=== PATIENT | female | born 1945 | race Caucasian/White ===

== ENCOUNTER → 2022-03-16 | Outpatient (CLI) | payer MEDICARE, SELFPAY ==
--- NOTE | 2022-03-16 09:07 | RAD_ITS ---
EXAM: XR ABDOMEN, 2 VIEWS AND XR CHEST, 1 VIEW CLINICAL INDICATION: UMBILICAL HERNIA TECHNIQUE: Frontal view of the chest, frontal view of the abdomen/pelvis and upright or decubitus view of the abdomen. This report was created using [employer] report [employer] technology. COMPARISON: None. FINDINGS: CHEST: LUNGS AND PLEURAL SPACES: Unremarkable. No consolidation or edema. No pneumothorax. No effusion. HEART: Unremarkable. Cardiac silhouette not enlarged. MEDIASTINUM: Central airways and mediastinal contour are unremarkable. ABDOMEN: INTRAPERITONEAL SPACE: There is a 6.3 x 3.0 cm calcific density in the right lower abdomen. No free air. GASTROINTESTINAL TRACT: Unremarkable. Non-obstructive. No bowel or stomach distention. ORGANS: Unremarkable as visualized. No organomegaly. No abnormal calcifications. TUBES, LINES AND DEVICES: None. BONES/JOINTS: There is mild curvature of the lumbar spine. SOFT TISSUES: No acute findings. RAD/Acute Abdomen Inc Chest IMPRESSION: [place] density in the right midabdomen which may represent abdominal calcification. If indicated further evaluation with CT scan may be beneficial. Electronically Signed: Ochoa Lopes MD at 17:18 EDT ,
[2022-03-16 10:18] LABS: Absolute Lymphocyte Count 1.06 X10^3/uL (0.83-4.51); Absolute Neutrophil Count 5.7 X10^3/uL (2.0-7.7); Basophil# 0.03 X10^3/uL; Basophil% 0.4 % (0-1); Eosinophil# 0.12 X10^3/uL; Eosinophils% 1.6 % (0-5); Hematocrit 40.8 % (37-47); Hemoglobin 13.3 g/dL (12.0-15.0); Lymphocyte # 1.06 X10^3/ul (0.83-4.51); Lymphocyte % 13.9 % (19-41); Mean Corp Hgb Conc 32.6 g/dL (32-36); Mean Corpuscular Hgb 29.5 pg (27.0-32.0); Mean Corpuscular Volume 90.5 fL (81-99); Mean Platelet Vol. 10.6 fl (6.2-12.0); Monocyte% 9.2 % (0-10); NRBC Flagged by Analyzer 0 % (0-5); Neutrophil # 5.69 X10^3/uL (2.7-7.7); Neutrophil % 74.2 % (47-70); Platelet Count 291 K/mm3 (150-450); RBC Distribution Width CV 13.1 % (11.6-14.6); RBC Distribution Width SD 43.2 fl (35.1-43.9); Red Blood Count 4.51 M/mm3 (4.2-5.4); White Blood Count 7.7 K/mm3 (4.4-11.0)
[2022-03-16 10:37] LABS: Color, Urine Yellow (Yellow); Glucose, Dipstick Normal (Normal); Ketone-Dipstick Negative (Negative); Leukocyte Esterase-Dipstick 500 /ul (Negative); Nitrite-Dipstick Negative (Negative); Occult Blood-Urine 10 /ul (Negative); Protein-Dipstick 15 mg/dl (Negative); Specific Gravity, Urine 1.005 (1.002-1.030); Urine Bilirubin Dipstick Negative (Negative); Urine Clarity Clear (Clear); Urine Urobilinogen Normal (Normal)
[2022-03-16 10:56] LABS: ALB/GLOB Ratio 0.7 RATIO (0.9-2.4); AST(SGOT) 13 U/L (15-37); Alanine Aminotransfer ALT/SGPT 19 U/L (13-56); Albumin, Serum 3.1 g/dL (3.2-5.0); Alkaline Phosphatase 71 U/L (45-117); Anion Gap 7 (5-15); BUN 9 mg/dL (7-18); BUN/Creat Ratio 11.5 RATIO (10-20); Calcium,Total 9.6 mg/dL (8.5-10.1); Chloride 98 mmol/L (98-107); Creatinine, Serum 0.78 mg/dL (0.55-1.02); EST Glomerular Filtration Rate 76 mL/min (>60); Est Glom Filt Rate - Afr Amer 92 mL/min (>60); Globulin 4.4 g/dL (2.2-4.2); Glucose 114 mg/dL (74-106); Potassium 3.6 mmol/L (3.5-5.1); Protein, Total 7.5 g/dL (6.4-8.2); Sodium Level 136 mmol/L (136-145)
== END | disposition home or self-care (01) ==
PROVIDERS: PCP Family Medicine; Referring Provider Family Medicine; Visit Provider Family Medicine
DX: K42.9 Umbilical hernia without obstruction or gangrene (principal); R10.9 Unspecified abdominal pain
CPT/HCPCS: 36415; 74022; 80053; 81002; 85025; 87086; 87088

== ENCOUNTER → 2022-04-14 | Outpatient (CLI) | payer MEDICARE, SELFPAY ==
--- NOTE | 2022-04-14 08:07 | CT_ITS ---
STUDY: CT ABDOMEN WITHOUT CONTRAST REASON FOR EXAM: Female, 76 years old. ABD PAIN RADIATION DOSAGE (If Supplied By Facility): CTDIvol = ( 24.07 ) mGy, DLP = ( 834.22 ) mGycm TECHNIQUE: Transaxial images were obtained without intravenous contrast, and with oral contrast. Sagittal and coronal images were reconstructed. Individualized dose optimization techniques were used for this CT. COMPARISON: None. FINDINGS: Minimal linear atelectasis at the lung bases. Coronary artery calcification. Mild hepatomegaly. There is a densely calcified gallstone in the gallbladder lumen measuring 3.4 cm x 2.5 cm. Normal spleen. Normal pancreas. Normal bilateral adrenal glands. There is a 1.5 cm cyst in the upper lateral pole of the right kidney. Normal left kidney. There is a small hiatal hernia. Normal small intestine. There are multiple colonic diverticula consistent with diverticulosis. There is non-visualization of the appendix. There is diffuse atherosclerotic calcification of the abdominal aorta and its major visceral branches, without a demonstrated aneurysm. Normal inferior vena cava. Normal retroperitoneum. Normal abdominal wall. There are diffuse degenerative changes of the visualized lumbar spine. Levoscoliosis. CT/Abdomen without IV Contrast IMPRESSION: Density calcified gallstone. Small right renal cyst. Electronically Signed: Jovany Tierney MD at 10:52 EDT ,
== END | disposition home or self-care (01) ==
PROVIDERS: PCP Family Medicine; Referring Provider Family Medicine; Visit Provider Family Medicine
DX: R10.9 Unspecified abdominal pain (principal)
CPT/HCPCS: 74150

== ENCOUNTER → 2022-05-02 | Outpatient (CLI) | payer MEDICARE, SELFPAY ==
[2022-05-02 09:58] LABS: Hematocrit 43.2 % (37-47); Hemoglobin 14.4 g/dL (12.0-15.0); Mean Corp Hgb Conc 33.3 g/dL (32-36); Mean Corpuscular Hgb 30.2 pg (27.0-32.0); Mean Corpuscular Volume 90.6 fL (81-99); Mean Platelet Vol. 10.5 fl (6.2-12.0); Platelet Count 226 K/mm3 (150-450); RBC Distribution Width CV 13.5 % (11.6-14.6); RBC Distribution Width SD 45.6 fl (35.1-43.9); Red Blood Count 4.77 M/mm3 (4.2-5.4); White Blood Count 7.7 K/mm3 (4.4-11.0)
[2022-05-02 10:10] LABS: ALB/GLOB Ratio 0.8 RATIO (0.9-2.4); AST(SGOT) 14 U/L (15-37); Alanine Aminotransfer ALT/SGPT 18 U/L (13-56); Albumin, Serum 3.3 g/dL (3.2-5.0); Alkaline Phosphatase 75 U/L (45-117); Anion Gap 5 (5-15); BUN 11 mg/dL (7-18); BUN/Creat Ratio 15.5 RATIO (10-20); Calcium,Total 9.5 mg/dL (8.5-10.1); Chloride 102 mmol/L (98-107); Creatinine, Serum 0.71 mg/dL (0.55-1.02); EST Glomerular Filtration Rate 85 mL/min (>60); Est Glom Filt Rate - Afr Amer 103 mL/min (>60); Glucose 105 mg/dL (74-106); Potassium 3.9 mmol/L (3.5-5.1); Protein, Total 7.3 g/dL (6.4-8.2); Sodium Level 138 mmol/L (136-145)
== END | disposition home or self-care (01) ==
LOC: MTLAB 08:24
PROVIDERS: PCP Family Medicine; Referring Provider Internal Medicine; Visit Provider Internal Medicine
DX: Z01.812 Encounter for preprocedural laboratory examination (principal); D64.9 Anemia, unspecified; N18.9 Chronic kidney disease, unspecified
CPT/HCPCS: 36415; 80053; 85027

== ENCOUNTER 2022-06-21 13:21 | Emergency (ER) | payer MEDICARE, SELFPAY ==
[2022-06-21 13:22] VITALS: BP 157/67; PULSE 64; RESP 16; TEMP 36.6; O2SAT 98; BMI 35.6
--- NOTE | 2022-06-21 14:07 | EDS_ITS ---
HPI History of Present Illness Chief Complaint: Dizziness Narrative Narrative: 76-year-old female presenting with severe lightheadedness. She describes it as an off-balance feeling. She states has had this for years but today it was very severe. She was only able to get up and move a couple of feet before she had to sit back down. She does not describe spinning. She does states she has a history of vertigo, but has not tried any Antivert because she says it has not worked. She denies headache, blurred vision, slurred speech, paresthesias, nausea, vomiting. She is not having any chest pain or shortness of breath. She does not have any abdominal pain. She has been eating and drinking normally. She is making normal urine and stool. She denies any dysuria, hematuria, urinary frequency. She denies black or bloody stools. She is been afebrile. [facility] Medical History (Updated 06/21/22 @ 14:48 by Bisi Nettles) High cholesterol Home Medications diazepam 2 mg tablet (Valium) 2 mg PO BID PRN dizziness or vertigo #10 tabs 06/21/22 [Rx Last Taken Unknown] meclizine 25 mg tablet 25 mg PO TID PRN dizziness #30 tabs 06/21/22 [Rx Last Rubio en Unknown] potassium chloride 20 mEq tablet,extended release 20 meq PO DAILY #30 tabs 06/21/22 [Rx Last Taken Unknown] promethazine 25 mg tablet 25 mg PO TID PRN dizziness or vertigo #30 tabs 3 [Rx Last Taken Unknown] Allergy/AdvReac Type Severity Reaction Status Date / Time No Known Allergies Allergy Verified 06/21/22 13:23 Social History Smoking Status: Unknown if ever smoked ROS ROS ED ROS Narrative Lightheadedness Constitutional Constitutional ED: Denies chills or fever(s) Eyes Eyes: Denies change in vision or diplopia ENT ENT ED: Denies rhinorrhea or sore throat Cardiovascular Cardiovascular: Denies chest pain or palpitations Respiratory/Chest Respiratory/Chest: Denies cough, dyspnea or dyspnea on exertion Gastrointestinal Gastrointestinal: Denies abdominal pain Genitourinary Genitourinary ED: Denies dysuria or hematuria Musculoskeletal Musculoskeletal: Denies arthralgias or back pain Integumentary Denies abscess Neurologic Neurologic: Denies headache(s) or paresthesias Psychiatric Psychiatric: Denies anxiety or depression EXAM Physical Exam Const Vital Signs: 06/21/22 13:22 06/21/22 14:27 06/21/22 14:47 Temperature 98 F Temperature Source Temporal Pulse Rate 64 Pulse Rate [Lying] Pulse Rate [Sitting (for 1 minute prior to obtaining)] Pulse Rate [Standing (for 1 minute prior to obtaining)] Respiratory Rate 16 Respiratory Effort Normal Non-Labored Blood Pressure 157/67 H Blood Pressure [Lying] Blood Pressure [Sitting (for 1 minute prior to obtaining)] Blood Pressure [Standing (for 1 minute prior to obtaining)] Blood Pressure Mean 97 Blood Pressure Mean [Lying] Blood Pressure Mean [Sitting (for 1 minute prior to obtaining)] Blood Pressure Mean [Standing (for 1 minute prior to obtaining)] Pulse Ox 98 95 Oxygen Delivery Method Room Air Room Air 06/21/22 14:36 06/21/22 16:16 Temperature Temperature Source Pulse Rate Pulse Rate [Lying] 63 Pulse Rate [Sitting (for 1 minute prior to obtaining)] 66 Pulse Rate [Standing (for 1 minute prior to obtaining)] 70 Respiratory Rate Respiratory Effort Blood Pressure 150/69 H Blood Pressure [Lying] 149/62 H Blood Pressure [Sitting (for 1 minute prior to obtaining)] 147/83 H Blood Pressure [Standing (for 1 minute prior to obtaining)] 133/67 H Blood Pressure Mean 96 Blood Pressure Mean [Lying] 91 Blood Pressure Mean [Sitting (for 1 minute prior to obtaining)] 104 Blood Pressure Mean [Standing (for 1 minute prior to obtaining)] 89 Pulse Ox Oxygen Delivery Method Positive well nourished General Appearance ED: NAD HEENT Reports moist mucous membranes and dry mucous membranes HEENT Narrative: Reproducible lightheadedness symptoms with Tomi-Hallpike however I am not able to view her eyes for nystagmus she is to close her eyes and hold hold her head. Mouth ED: Yes dry mucous membranes Mouth: dry mucous membranes Chest Wall inspection of chest normal Resp normal respiratory effort Auscultation: Negative for rales, rhonchi or wheezes Cardio regular rate and regular rhythm Psych mental status grossly normal Skin no rashes or lesions noted, no wounds and skin turgor normal MDM MDM MDM Narrative Medical decision making narrative: Patient presenting with chief complaint of lightheadedness. She states that she feels off balance. She denies vertiginous symptoms. Her exam is otherwise normal with exception of reproducible dizziness/lightheadedness with [place]- Hallpike. I will treat her with Phenergan and meclizine. We will obtain a CBC to assess hemoglobin level and differential., Chemistry to assess electrolytes and renal function. Urinalysis will be obtained to assess for UTI. EKG will be obtained to assess for dysrhythmia. I will obtain a chest x-ray and a troponin to ensure no cardiopulmonary etiology. Orthostatics will also be obtained to assess for orthostatic hypotension. Orthostatic vital signs are normal. EKG on my interpretation is sinus bradycardia with a ventricular to 59 bpm without sign of ischemic change or dysrhythmia. Chest x-ray does not show any acute cardiopulmonary process on my interpretation. Radiology interprets this as mild central pulmonary artery prominence. This does not exclude a change from previous chest x-ray she not complaining of shortness of breath. Her vital signs are normal and do not require any oxygen. CBC within normal limits with normal white blood cell count of 9.8. Hemoglobin stable at 14.3. Platelets normal 261. Renal function electrolytes normal with exception of potassium of 3.0. I did check a magnesium level to make sure that this was normal and then repleted the potassium orally with 40 mEq. Patient states he is on something for potassium so I will have to call her PCP to determine what this is because she does not know how much. After speaking with Dr. Baez who is on-call for Dr. Kothari it does appear that she is not on a formal potassium supplement. Dr. Baez recommended starting her on 20 mill equivalents p.o. daily because she states that once they get down low like this they do not typically repeat too fast. This will be provided as well. Discussed with the family and the patient that she will need to be on potassium until follow-up and make a follow-up appointment about 2 weeks from now. Also recommended that she take her first dose of Valium in front of her family to make sure she tolerates this well. Patient be discharged home in stable condition. Impression: 1. Lightheadedness 2. Vertigo 3. Hypokalemia Lab Data Attestation: I reviewed the patient's lab results. Labs: Laboratory Results - last 24 hr 06/21/22 06/21/2223 13:40 13:40 13:40 WBC 9.8 RBC 4.85 Hgb 14.3 Hct 43.5 MCV 89.7 MCH 29.5 MCHC 32.9 RDW Std Deviation 43.7 RDW Coeff of Tony 13.3 Plt Count 261 MPV 10.6 Immature Gran % (Auto) 0.300 Neut % (Auto) 73.8 H Lymph % (Auto) 14.4 L Mayes % (Auto) 9.1 Eos % (Auto) 1.8 Baso % (Auto) 0.6 Absolute Neuts (auto) 7.3 Absolute Lymphs (auto) 1.42 Nucleated RBC % 0 Sodium 139 Potassium 3.0 L Chloride 98 Carbon Dioxide 32.0 Anion Gap 9 BUN 13 Creatinine 0.80 Estim Creat Clear Calc 44.44 Est GFR (MDRD) Af Amer 89 Est GFR (MDRD) Non-Af 74 BUN/Creatinine Ratio 16.2 Glucose 107 H Calcium 9.5 Magnesium 2.2 Troponin I High Sens 6 Urine Color Urine Clarity Urine pH Ur Specific [place] Urine Protein Urine Glucose (UA) Urine Ketones Urine Occult Blood Urine Nitrite Urine Bilirubin Urine Urobilinogen Ur Leukocyte Esterase Urine RBC Urine WBC Ur Squamous Epith Cells Urine Bacteria Urine Mucus 06/21/22 16:00 WBC RBC Hgb Hct MCV MCH MCHC RDW Std Deviation RDW Coeff of Tony Plt Count MPV Immature Gran % (Auto) Neut % (Auto) Lymph % (Auto) Mayes % (Auto) Eos % (Auto) Baso % (Auto) Absolute Neuts (auto) Absolute Lymphs (auto) Nucleated RBC % Sodium Potassium Chloride Carbon Dioxide Anion Gap BUN Creatinine Estim Creat Clear Calc Est GFR (MDRD) Af Amer Est GFR (MDRD) Non-Af BUN/Creatinine Ratio Glucose Calcium Magnesium Troponin I High Sens Urine Color Yellow Urine Clarity Clear Urine pH 7.0 Ur Specific [place] 1.010 Urine Protein Negative Urine Glucose (UA) Normal Urine Ketones Negative Urine Occult Blood Negative Urine Nitrite Negative Urine Bilirubin Negative Urine Urobilinogen Normal Ur Leukocyte Esterase 500 H Urine RBC 0 SEEN Urine WBC 5-10 SEEN Ur Squamous Epith Cells 0-5 SEEN Urine Bacteria 1+ Urine Mucus 0 SEEN Radiography Diagnostic Testing: Clinical Impression(s) from Imaging Studies Chest X-Ray 06/21/22 14:38 IMPRESSION: There is prominence of the central pulmonary arteries. Electronically Signed: Jovany Tierney MD at 15:07 EST , Discharge Plan Triage Chief Complaint: Dizziness ED Provider: Roney Luna Dx/Rx/DC Orders Instructions: ED Hypokalemia, ED Vertigo, Unspecified Prescriptions: New meclizine 25 mg tablet 25 mg PO TID PRN (Reason: dizziness) Qty: 30 0RF promethazine 25 mg tablet 25 mg PO TID PRN (Reason: dizziness or vertigo) Qty: 30 0RF diazepam [Valium] 2 mg tablet 2 mg PO BID PRN (Reason: dizziness or vertigo) Qty: 10 0RF potassium chloride 20 mEq tablet extended release 20 meq PO DAILY Qty: 30 0RF Primary Care Provider: Skyler Kothari Referrals: Skyler Kothari MD [Primary Care Provider] - Disposition Disposition: Home, Self Care
--- NOTE | 2022-06-21 14:13 | NURSING ---
NO OLD EKGS
[2022-06-21 14:35] LABS: Absolute Lymphocyte Count 1.42 X10^3/uL (0.83-4.51); Absolute Neutrophil Count 7.3 X10^3/uL (2.0-7.7); Basophil# 0.06 X10^3/uL; Basophil% 0.6 % (0-1); Eosinophil# 0.18 X10^3/uL; Eosinophils% 1.8 % (0-5); Hematocrit 43.5 % (37-47); Hemoglobin 14.3 g/dL (12.0-15.0); Lymphocyte # 1.42 X10^3/ul (0.83-4.51); Lymphocyte % 14.4 % (19-41); Mean Corp Hgb Conc 32.9 g/dL (32-36); Mean Corpuscular Hgb 29.5 pg (27.0-32.0); Mean Corpuscular Volume 89.7 fL (81-99); Mean Platelet Vol. 10.6 fl (6.2-12.0); Monocyte# 0.89 X10^3/uL; Monocyte% 9.1 % (0-10); NRBC Flagged by Analyzer 0 % (0-5); Neutrophil # 7.25 X10^3/uL (2.7-7.7); Neutrophil % 73.8 % (47-70); Platelet Count 261 K/mm3 (150-450); RBC Distribution Width CV 13.3 % (11.6-14.6); RBC Distribution Width SD 43.7 fl (35.1-43.9); Red Blood Count 4.85 M/mm3 (4.2-5.4); White Blood Count 9.8 K/mm3 (4.4-11.0)
[2022-06-21 14:36] VITALS: BP 133/67; BP 147/83; BP 149/62; PULSE 63; PULSE 66; PULSE 70
--- NOTE | 2022-06-21 14:38 | RAD_ITS ---
STUDY: X-RAY CHEST REASON FOR EXAM: Female, 76 years old. Chest pain TECHNIQUE: Single AP portable view of the chest. COMPARISON: Comparison is made with prior study 03/16/2022. FINDINGS: The lungs are clear and expanded. There is no demonstrated pleural abnormality. Normal size heart. Normal mediastinum and [place]. There is prominence of the pulmonary hilar arteries without peripheral pulmonary vascular congestion, suggesting pulmonary hypertension. Normal visualized aortic arch and descending thoracic aorta. There are diffuse degenerative changes of the visualized thoracic spine. There is degenerative osteoarthritis of the bilateral shoulders. There is no demonstrated abnormality of the visualized soft tissue structures of the upper abdomen. RAD/Chest 1 View (Portable) IMPRESSION: There is prominence of the central pulmonary arteries. Electronically Signed: Jovany Tierney MD at 15:07 EST ,
[2022-06-21] MEDS: Meclizine HCl 25 MG Tablet PO (14:43)
[2022-06-21 14:44] LABS: Anion Gap 9 (5-15); BUN 13 mg/dL (7-18); BUN/Creat Ratio 16.2 RATIO (10-20); Calcium,Total 9.5 mg/dL (8.5-10.1); Chloride 98 mmol/L (98-107); EST Glomerular Filtration Rate 74 mL/min (>60); Est Glom Filt Rate - Afr Amer 89 mL/min (>60); Estimated Creatinine Clearance 44.44 ml/min; Glucose 107 mg/dL (74-106); Sodium Level 139 mmol/L (136-145); Troponin-I HS 6 pg/mL (3.0-54.0)
[2022-06-21] MEDS: proMETHazine 25 MG Tablet PO (14:44)
[2022-06-21 14:47] VITALS: O2SAT 95
[2022-06-21 15:09] LABS: Magnesium 2.2 mg/dL (1.6-2.6)
[2022-06-21] MEDS: Potassium Chloride Oral Tablet 20 MEQ 40 MEQ PO (15:34)
[2022-06-21 16:08] LABS: Mucous, Urine 0 SEEN /hpf (<or=2+); Red Blood Cells-Urine 0 SEEN /hpf (0-5)
[2022-06-21 16:12] LABS: Color, Urine Yellow (Yellow); Glucose, Dipstick Normal (Normal); Ketone-Dipstick Negative (Negative); Leukocyte Esterase-Dipstick 500 /ul (Negative); Nitrite-Dipstick Negative (Negative); Occult Blood-Urine Negative /ul (Negative); Protein-Dipstick Negative (Negative); Urine Bilirubin Dipstick Negative (Negative); Urine Clarity Clear (Clear); Urine Urobilinogen Normal (Normal)
[2022-06-21 16:16] VITALS: BP 150/69
[2022-06-21 16:35] LABS: Bacteria 1+ /hpf (None Seen); Squamous Epithelial Cells - UA 0-5 SEEN /hpf (5-10); White Blood Cells 5-10 SEEN /hpf (0-5)
== END 2022-06-21 17:16 | disposition home or self-care (01) ==
PROVIDERS: Emergency Provider Student in an Organized Health Care Education/Training Program; PCP Family Medicine; Visit Provider Student in an Organized Health Care Education/Training Program
DX: R42 Dizziness and giddiness (principal); E87.6 Hypokalemia; E78.00 Pure hypercholesterolemia, unspecified; R00.1 Bradycardia, unspecified
CPT/HCPCS: 71045; 80048; 81001; 83735; 84484; 85025; 93005; 99285

== ENCOUNTER 2022-07-26 11:00 | Outpatient (RCR) | payer MEDICARE, SELFPAY ==
--- NOTE | 2022-06-30 17:17 | HP.PTEVAL ---
Patient's Visit Information NIXON HERNÁNDEZ is a 76 year old F referred to Physical Therapy by Dr. Skyler Kothari MD with a diagnosis of BPPV. Date of Evaluation: 06/30/22 Physical Therapist: Rojas Root DPT, OCS, CSCS - Visit Plan Frequency: 1-2x /Week Duration: 2-4 Weeks Plan: 1-2x/week as needed for. 1. monitor positional(treated with R BBQ roll today. 2. check oculomotor for adapatation needs. 3. Balance ex as needed. next session check positional./oculomotor - Subjective Had this condition on and off for 20 years. Went to ER last week with bad balance and legs giving out for no reason. ER checked heart and blood work and MRI. [place] unsteady since 2001. Does not describe spinning. Has been this way all day today but been there past couple days. Sitting and lying down feels OK. Unsteady in standing. Not describing spinning, lightheadedness or goofy head feeling. Turning in bed will make her worse as do looking up. Sleeping is Ok. Not employed. Live alone, basic ADLs are going OK, no steps at home. Hobbies: TV, sewing. Exercises: no. Last casse before a weeka and a half ago was 4 yrs ago. - Objective Walks slowly but safe and I back to PT . transfers chair and bed I. Steps step 2 with rail today I. hesitates to turn. cervical aROM 50 rotation B without pain, 45 e3xt without pain. Posture is forward head protracted scapula. UE AROM WFL and without pain, resisted shoulder flexion, biceps, er, and thumb extension is 4- without pain. Good scapular mobility. reflexes 2/.3 bi and tri. Sensation UE WNL to gross light touch. no nystagmus with gaze or head shake. - B hallpike angela although intiially up is dizzy/unsteady. + R Rollt est for asymmetrical dizzyness but bno obvious nystagmus. Treated with BBQ roll right and significantly better with each repetition. - Balance/Special Test Scores Functional Gait Assessment Score: 24 % Disability: 20.0000 Dizziness Score: 46 - Goals Goal 1:: Pt feel 100% back to baseline level prior to 2 weeks ago. 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 Rehabilitation Potential: Fair - Anticipated Interventions Patient/Client Instruction: Educate patient on: Condition, Plan of Care For the Purpose of:: To increase tolerance to activity/condition/position, To improve gait and locomotor functions, To improve balance Therapeutic Exercise to Include: Balance training Comment: positional and adaptation ex For the Purpose of:: To increase tolerance to activity/condition/position, To improve gait and locomotor functions, To improve balance, To improve safety with gait Thank you for the opportunity to evaluate your patient. For Medicare and Medicare HMO plans, please review the plan of care and approve it. It will need to be FAXED BACK to us at [phone] for Medicare purposes. For Medicare only, by signing this I certify the plan of care. Please let me know if there are questions or concerns regarding this plan of care. Physician Signature: Date:
--- NOTE | 2022-08-18 15:50 | HP.PT.NRP ---
NIXON HERNÁNDEZ was seen in my office for initial evaluation on 06/30/22. The following Plan of Care was established for this patient: Initial Frequency: 1-2x /Week Initial Duration: 2-4 Weeks Patient/Client Instruction: Educate patient on: Condition, Plan of Care For the Purpose of:: To increase tolerance to activity/condition/position, To improve gait and locomotor functions, To improve balance Therapeutic Exercise to Include: Balance training For the Purpose of:: To increase tolerance to activity/condition/position, To improve gait and locomotor functions, To improve balance, To improve safety with gait This patient was last seen in our office 07/26/22. Pertinent comments regarding their Physical therapy will appear below: Pt seen four visits of positional treatments and balance. She was noncompliant with exercises and having other medical difficulties with her gall bladder. She is to f/u on 08/19 but cancelled and stated she wished to be discharged as she is doing well. At this point I will be discontinuing this patient from physical therapy. I would be happy to see this patient again in the future if found appropriate by the physician. Thank you! Rojas Root, DPT, OCS, CSCS Balance/Gait/Functional tests - Balance/Special Test Scores Functional Gait Assessment Score: 28 % Disability: 6.6700 CATSIB Score (Max score 120 seconds): 75 Dizziness Score: 46
== END 2022-07-26 19:00 | disposition home or self-care (01) ==
LOC: PT 11:00
PROVIDERS: PCP Family Medicine; Referring Provider Family Medicine; Visit Provider Family Medicine
DX: H81.10 Benign paroxysmal vertigo, unspecified ear (principal)
CPT/HCPCS: 97161; 97530

== ENCOUNTER → 2022-10-06 | Outpatient (CLI) | payer MEDICARE, SELFPAY ==
[2022-10-06 10:32] LABS: PTHIN 48.1 pg/mL (18.4-80.1)
[2022-10-06 10:35] LABS: Vitamin D,25 Hydroxy 50.2 ng/mL
[2022-10-06 10:36] LABS: Microalbumin,Random Urine 8.7 mg/L (NO RANGE EST.)
[2022-10-06 10:44] LABS: Anion Gap 3 (5-15); BUN 12 mg/dL (7-18); BUN/Creat Ratio 15.5 RATIO (10-20); Calcium,Total 9.3 mg/dL (8.5-10.1); Chloride 102 mmol/L (98-107); Cholesterol 145 mg/dL (200); Creatinine, Serum 0.77 mg/dL (0.55-1.02); EST Glomerular Filtration Rate 77 mL/min (>60); Est Glom Filt Rate - Afr Amer 93 mL/min (>60); Glucose 96 mg/dL (74-106); High Density Lipoprotein 55 mg/dL; Magnesium 2.6 mg/dL (1.6-2.6); Phosphorus 3.1 mg/dL (2.5-4.9); Potassium 3.6 mmol/L (3.5-5.1); Sodium Level 136 mmol/L (136-145); Thyroid Stim Hormone (TSH) 2.48 uIU/mL (0.358-3.74); Triglycerides 128 mg/dL; Very Low Density Lipoprotein 26 mg/dL (5-40)
== END | disposition home or self-care (01) ==
LOC: MTLAB 07:19
PROVIDERS: PCP Family Medicine; Referring Provider Family Medicine; Visit Provider Family Medicine
DX: Z00.00 Encounter for general adult medical examination without abnormal findings (principal); M81.0 Age-related osteoporosis without current pathological fracture; E78.5 Hyperlipidemia, unspecified
CPT/HCPCS: 36415; 80048; 80061; 82043; 82306; 82330; 83735; 83970; 84100; 84443

== ENCOUNTER → 2023-05-12 | Outpatient (CLI) | payer MEDICARE, SELFPAY ==
--- NOTE | 2023-05-12 12:48 | MRI_ITS ---
EXAM: MR HEAD WITHOUT INTRAVENOUS CONTRAST CLINICAL INDICATION: Resting tremors, balance issues TECHNIQUE: Multiplanar and multisequence MR images of the brain were obtained without intravenous contrast. COMPARISON: No relevant prior studies available. FINDINGS: BRAIN AND EXTRA-AXIAL SPACES: There is no restricted diffusion to indicate recent infarct or other pathology. There is no intracranial mass or mass effect. There is no shift of midline structures. There is no hydrocephalus. Basal cisterns are patent. Minimal periventricular and subcortical T2 and T2 FLAIR hyperintensities are nonspecific although most commonly due to chronic microvascular ischemic changes in a patient of this age. No intracranial hemorrhage. No pathologic mineralization. Posterior fossa structures are unremarkable. SELLA: Partially empty sella turcica is nonspecific. AUDITORY SYSTEM: No significant abnormality. The internal auditory canals are patent. BONES/JOINTS: No significant abnormality. No discrete lytic or blastic abnormalities. SINUSES: Normal as visualized. Clear. MASTOID AIR CELLS: Normal as visualized. Clear. ORBITS: Normal as visualized. Both globes, extraocular muscles, optic nerves and retrobulbar fat appear unremarkable. VASCULATURE: Normal as visualized. Normal flow voids in the major intracranial circulation. MRI/Brain without Contrast IMPRESSION: Chronic microvascular ischemic changes. No evidence of acute intracranial pathology. Partially empty sella turcica is nonspecific. Electronically Signed: Aryan Valdez DO at 19:29 EST ,
== END | disposition home or self-care (01) ==
PROVIDERS: PCP Family Medicine; Referring Provider Family Medicine; Visit Provider Family Medicine
DX: G25.2 Other specified forms of tremor (principal)
CPT/HCPCS: 70551

== ENCOUNTER 2023-10-09 10:58 | Emergency (ER) | payer MEDICARE, SELFPAY ==
[2023-10-09 11:00] VITALS: BP 145/73; PULSE 70; RESP 14; TEMP 36.2; O2SAT 97
--- NOTE | 2023-10-09 11:31 | EX.ED.DYSGE1 ---
HPI History of Present Illness Chief Complaint: Dizziness [facility] Medical History (Updated 06/21/22 @ 14:48 by Bisi Wahl) High cholesterol Home Medications diazepam 2 mg tablet (Valium) 2 mg PO BID PRN dizziness or vertigo #10 tabs 06/21/22 [Rx Last Taken Unknown] meclizine 25 mg tablet 25 mg PO TID PRN dizziness #30 tabs 06/21/22 [Rx Last Taken Unknown] potassium chloride 20 mEq tablet,extended release 20 meq PO DAILY #30 tabs 06/21/22 [Rx Last Taken Unknown] promethazine 25 mg tablet 25 mg PO TID PRN dizziness or vertigo #30 tabs 06/21/22 [Rx Last Taken Unknown] diazepam 2 mg tablet (Valium) 2 mg PO BID PRN dizziness or vertigo #14 tabs 10/09/23 [Rx Last Taken Unknown] Allergy/AdvReac Type Severity Reaction Status Date / Time No Known Allergies Allergy Verified 10/09/23 10:59 Social History Smoking Status: Unknown if ever smoked EXAM Physical Exam Const Vital Signs: 10/09/23 11:00 10/09/23 11:16 10/09/23 12:59 Temperature 97.1 F L Temperature Source Temporal Pulse Rate 70 78 Respiratory Rate 14 13 Respiratory Effort Normal Non-Labored Respiratory Pattern Normal Blood Pressure 145/73 H 132/52 H Blood Pressure Mean 97 78 Pulse Ox 97 97 Oxygen Delivery Method Room Air Room Air 10/09/23 14:00 10/09/23 14:34 Temperature 98 F Temperature Source Pulse Rate 60 62 Respiratory Rate 17 16 Respiratory Effort Respiratory Pattern Blood Pressure 112/71 112/71 Blood Pressure Mean 84 84 Pulse Ox 92 90 Oxygen Delivery Method Room Air [facility] MDM MDM Narrative Medical decision making narrative: HISTORY OF PRESENT ILLNESS: 77-year-old female presents with dizziness, notes is been intermittent since Monday. Now she is taking meclizine without relief. She further states she is more dizzy today than usual. She noted some issues with her balance. Notes this has since resolved. REVIEW OF SYSTEMS: Pertinent positives: Dizziness Pertinent negatives: Headache, chest pain, shortness of breath, palpitations PHYSICAL EXAM: Nursing triage notes reviewed, Vital signs reviewed Constitutional: please see mdm HENT: MMM Eyes: Pupils equal round and reactive to light, Extraocular muscles intact Neck: No stridor, no JVD, full neck ROM Lungs: Clear to auscultation, No wheezing or rales. No increased work of breathing, no conversational dyspnea, no accessory muscle use, no nasal flaring. No respiratory distress noted Heart: Regular rate and rhythm, No murmurs, No rubs and No gallops, 2+ distal pulses (radial, femoral, posterior tibial) in all extremities Abdomen: Soft, there is no tenderness, rigidity, rebound or guarding, no obvious peritoneal signs, no palpable pulsatile abdominal masses, no auscultated abdominal bruit : No CVAT Extremities: No edema Neuro: Alert and oriented x3, neuro exam at baseline, cranial nerves II through XII are intact. No pain with extraocular muscle movement. There is negative test of skew. 5 of 5 strength in upper and lower extremities in flexion extension. Intact sensation to light touch in upper and lower extremity dermatomes. No truncal or extremity ataxia. No dysdiadochokinesia. Normal gait. 2+ reflexes in upper and lower extremities. No meningeal signs. Negative Babinski. NIH of 0. Skin: No rash or lesions noted MEDICAL DECISION MAKING: Chief Complaint: Dizziness External records reviewed: Prior imaging reviewed:Chronic microvascular ischemic changes. No evidence of acute intracranial pathology. Partially empty sella turcica is nonspecific. Factors affecting care: vertigo Social determinants of health: none History obtained from others: none Consults: none [facility] Narrative: Patient was hemodynamically stable afebrile nontoxic-appearing. Initial neurologic exam revealed no focal deficits I considered the following differential diagnosis: Posterior circulation CVA, BPPV, ICH, arrhythmia, anemia, electrolyte disturbance, ACS I obtained a broad lab and imaging workup to further elucidate the etiology of the patient's ALL IMAGES (IF OBTAINED) HAVE BEEN PERSONALLY REVIEWED AND INTERPRETED BY MYSELF. EKG with normal sinus rhythm, left axis deviation, normals, no STEMI CBC without leukocytosis, severe anemia, no thrombocytopenia. BMP with mild hypokalemia, no significant electrolyte disturbance otherwise, no PORSCHE, no metabolic acidosis High-sensitivity troponin is negative, no evidence of myocardial ischemia I have personally reviewed the patient's chest x-ray. Chest x-ray is unremarkable for pulmonary edema, pneumothorax, pneumonia or focal cardiopulmonary abnormality. CT scan of the head is negative Upon reevaluation neurologic exam remained intact. She had a stable non-ataxic gait. Her workup was negative. No signs of arrhythmia, myocardial schema, posterior circulation CVA, ICH, electro disturbance or ACS. She is appropriate discharge home with close outpatient PCP and neurology follow-up. The patient and/or family, caregivers express understanding. The patient and/or family, caregivers agrees with the plan. Shared decision making: I will have a discussion with the patient and or visitors regarding risk/benefits of further testing or admission. They will be made aware of of the risk/benefits inherent in this decision they will be given the opportunity to voice understanding. Total critical care time today provided was at least 0 minutes. This excludes separately billable procedures. Critical care time (if documented) is secondary to the patient having high probability of clinically significant/life threatening deterioration in the patient's condition which required my urgent intervention. Impression: 1. Dizziness 2. Hypokalemia Dispo: discharge This note was generated with [employer] dictation software. It may contain incorrect words, spelling, and punctuation that were not noted in review of the chart prior to signing. Lab Data Labs: Laboratory Results - last 24 hr 10/09/23 11:28 WBC 10.1 RBC 4.72 Hgb 14.0 Hct 41.1 MCV 87.1 MCH 29.7 MCHC 34.1 RDW Std Deviation 41.6 RDW Coeff of Tony 12.9 Plt Count 258 MPV 10.4 Immature Gran % (Auto) 0.300 Neut % (Auto) 77.8 H Lymph % (Auto) 12.3 L [place] % (Auto) 7.8 Eos % (Auto) 1.3 Baso % (Auto) 0.5 Absolute Neuts (auto) 7.9 H Absolute Lymphs (auto) 1.25 Nucleated RBC % 0 Sodium 136 Potassium 3.3 L Chloride 100 Carbon Dioxide 29.0 Anion Gap 7 BUN 14 Creatinine 0.75 Est GFR (MDRD) Af Amer 96 Est GFR (MDRD) Non-Af 80 BUN/Creatinine Ratio 18.7 Glucose 134 H Calcium 9.4 Troponin I High Sens 5 Radiography Diagnostic Testing: Clinical Impression(s) from Imaging Studies Brain CT 10/09/23 12:01 IMPRESSION: Chronic involutional changes of the brain. Electronically Signed: Jovany Tierney MD at 13:19 EDT , Chest X-Ray 10/09/23 12:30 IMPRESSION: No acute abnormality is seen. Electronically Signed: Jovany Tierney MD at 12:48 EDT , Discharge Plan Triage Chief Complaint: Dizziness ED Provider: Zhang Bridges Dx/Rx/DC Orders Instructions: ED Dizziness, Uncertain Cause Prescriptions: New diazepam [Valium] 2 mg tablet 2 mg PO BID PRN (Reason: dizziness or vertigo) Qty: 14 0RF No Action meclizine 25 mg tablet 25 mg PO TID PRN (Reason: dizziness) Qty: 30 0RF promethazine 25 mg tablet 25 mg PO TID PRN (Reason: dizziness or vertigo) Qty: 30 0RF diazepam [Valium] 2 mg tablet 2 mg PO BID PRN (Reason: dizziness or vertigo) Qty: 10 0RF potassium chloride 20 mEq tablet extended release 20 meq PO DAILY Qty: 30 0RF Primary Care Provider: Gurinder Kothari Referrals: Gurinder Kothari MD [Primary Care Provider] - Activity Restrictions/Additional Instructions: Thank you for trusting us with your care today! Please take Tylenol (2 pills, 650 mg), ibuprofen (2 pills, 400 mg) every 6 hours as needed for pain and fever control. Please already prescribed Valium and meclizine as needed for dizziness. Please return to the emergency department if your symptoms change or worsen. Please follow with your primary care physician for further outpatient evaluation and management. Disposition Disposition: Home, Self Care Discharge Date/Time: 10/09/23 14:48
--- NOTE | 2023-10-09 12:01 | CT_ITS ---
STUDY: CT BRAIN WITHOUT CONTRAST REASON FOR EXAM: Female, 77 years old. Change in Mental Status RADIATION DOSAGE (If Supplied By Facility): CTDIvol = ( 44.99 ) mGy, DLP = ( 762.36 ) mGycm TECHNIQUE: Transaxial CT imaging of the brain was performed without administration of intravenous contrast material. Individualized dose optimization techniques were used for this CT. COMPARISON: No relevant priors. FINDINGS: Normal soft tissue structures. There is hyperostosis frontalis internus. There is mild cerebral atrophy with widening of the extra-axial spaces and ventricular dilatation. Normal white matter tracts of the cerebral hemispheres. Normal basal ganglia and thalami. Normal brainstem. Normal cerebellum. There is no intracranial hemorrhage. There are no findings of an acute ischemic infarction. Normal visualized paranasal sinuses. CT/Brain/Head without Contrast IMPRESSION: Chronic involutional changes of the brain. Electronically Signed: Jovany Tierney MD at 13:19 EDT ,
--- NOTE | 2023-10-09 12:03 | EKG12_ITS ---
Test Reason : GENERAL Blood Pressure : / mmHG Vent. Rate : 062 BPM Atrial Rate : 062 BPM P-R Int : 186 ms QRS Dur : 088 ms QT Int : 442 ms P-R-T Axes : 060 -13 024 degrees QTc Int : 448 ms Normal sinus rhythm Minimal voltage criteria for LVH, may be normal variant ( R in aVL ) Borderline ECG Confirmed by JUAN CARLOS LOBATO, JOESPH ([id number]), purchasing expeditor GALILEA HUYNH ([id number]) on 10/12/2023 11:35:00 AM Referred By: Confirmed By:JOESPH RANGEL MD
[2023-10-09 12:14] LABS: Absolute Lymphocyte Count 1.25 X10^3/uL (0.83-4.51); Absolute Neutrophil Count 7.9 X10^3/uL (2.0-7.7); Basophil# 0.05 X10^3/uL; Basophil% 0.5 % (0-1); Eosinophil# 0.13 X10^3/uL; Eosinophils% 1.3 % (0-5); Hematocrit 41.1 % (37-47); Lymphocyte # 1.25 X10^3/ul (0.83-4.51); Lymphocyte % 12.3 % (19-41); Mean Corp Hgb Conc 34.1 g/dL (32-36); Mean Corpuscular Hgb 29.7 pg (27.0-32.0); Mean Corpuscular Volume 87.1 fL (81-99); Mean Platelet Vol. 10.4 fl (6.2-12.0); Monocyte# 0.79 X10^3/uL; Monocyte% 7.8 % (0-10); NRBC Flagged by Analyzer 0 % (0-5); Neutrophil # 7.88 X10^3/uL (2.7-7.7); Neutrophil % 77.8 % (47-70); Platelet Count 258 K/mm3 (150-450); RBC Distribution Width CV 12.9 % (11.6-14.6); RBC Distribution Width SD 41.6 fl (35.1-43.9); Red Blood Count 4.72 M/mm3 (4.2-5.4); White Blood Count 10.1 K/mm3 (4.4-11.0)
--- NOTE | 2023-10-09 12:30 | RAD_ITS ---
STUDY: X-RAY CHEST REASON FOR EXAM: Female, 77 years old. Dizziness TECHNIQUE: Single AP portable view of the chest. COMPARISON: Comparison is made with prior examination dated generally 2022. FINDINGS: EKG electrodes are seen. The lungs are clear and expanded. There is no demonstrated pleural abnormality. Normal size heart. Normal mediastinum and gaston. Normal visualized pulmonary arteries. There is atherosclerotic calcification of the aortic arch with tortuosity. There are degenerative changes of the visualized thoracic spine. Normal visualized ribs, clavicles, and shoulders. There is no demonstrated abnormality of the visualized soft tissue structures of the upper abdomen. RAD/Chest 1 View (Portable) IMPRESSION: No acute abnormality is seen. Electronically Signed: Jovany Tierney MD at 12:48 EDT ,
[2023-10-09 12:34] LABS: Anion Gap 7 (5-15); BUN 14 mg/dL (7-18); BUN/Creat Ratio 18.7 RATIO (10-20); Calcium,Total 9.4 mg/dL (8.5-10.1); Chloride 100 mmol/L (98-107); Creatinine, Serum 0.75 mg/dL (0.55-1.02); EST Glomerular Filtration Rate 80 mL/min (>60); Est Glom Filt Rate - Afr Amer 96 mL/min (>60); Glucose 134 mg/dL (74-106); Potassium 3.3 mmol/L (3.5-5.1); Sodium Level 136 mmol/L (136-145); Troponin-I HS 5 pg/mL (3.0-54.0)
[2023-10-09 12:59] VITALS: BP 132/52; PULSE 78; RESP 13; O2SAT 97
[2023-10-09 14:00] VITALS: BP 112/71; PULSE 60; RESP 17; O2SAT 92
[2023-10-09 14:34] VITALS: BP 112/71; PULSE 62; RESP 16; TEMP 36.6; O2SAT 90
== END 2023-10-09 14:48 | disposition home or self-care (01) ==
PROVIDERS: Emergency Provider Emergency Medicine; PCP Family Medicine; Visit Provider Emergency Medicine
DX: R42 Dizziness and giddiness (principal); E87.6 Hypokalemia; E78.00 Pure hypercholesterolemia, unspecified
CPT/HCPCS: 70450; 71045; 80048; 84484; 85025; 93005; 99283; J7030; A4216

== ENCOUNTER → 2023-10-12 | Outpatient (CLI) | payer MEDICARE, SELFPAY ==
[2023-10-12 10:45] LABS: Vitamin D,25 Hydroxy 39.2 ng/mL
[2023-10-12 10:47] LABS: PTHIN 84.4 pg/mL (18.4-80.1)
[2023-10-12 10:59] LABS: ALB/GLOB Ratio 0.9 RATIO (0.9-2.4); AST(SGOT) 17 U/L (15-37); Alanine Aminotransfer ALT/SGPT 21 U/L (13-56); Albumin, Serum 3.3 g/dL (3.2-5.0); Alkaline Phosphatase 66 U/L (45-117); Anion Gap 6 (5-15); BUN 12 mg/dL (7-18); Calcium,Total 9.2 mg/dL (8.5-10.1); Chloride 99 mmol/L (98-107); Cholesterol 152 mg/dL (200); EST Glomerular Filtration Rate 74 mL/min (>60); Est Glom Filt Rate - Afr Amer 89 mL/min (>60); Globulin 3.8 g/dL (2.2-4.2); Glucose 95 mg/dL (74-106); High Density Lipoprotein 56 mg/dL; Potassium 3.3 mmol/L (3.5-5.1); Protein, Total 7.1 g/dL (6.4-8.2); Sodium Level 138 mmol/L (136-145); Thyroid Stim Hormone (TSH) 3.03 uIU/mL (0.358-3.74); Triglycerides 145 mg/dL; Very Low Density Lipoprotein 29 mg/dL (5-40)
== END | disposition home or self-care (01) ==
PROVIDERS: PCP Family Medicine; Referring Provider Family Medicine; Visit Provider Family Medicine
DX: M81.0 Age-related osteoporosis without current pathological fracture (principal); E78.5 Hyperlipidemia, unspecified
CPT/HCPCS: 36415; 80053; 80061; 82306; 83970; 84443

== ENCOUNTER → 2024-01-04 | Outpatient (CLI) | payer MEDICARE, SELFPAY ==
--- NOTE | 2024-01-04 09:23 | BD_ITS ---
STUDY: DUAL ENERGY X-RAY ABSORPTIOMETRY / DXA REASON FOR EXAM: Female, 78 years old. [id number] TECHNIQUE: Bone Mineral Density (BMD) measurements of lumbar spine and bilateral hips were obtained. COMPARISON: None. FINDINGS: Lumbar Spine (L1-L4): g/cm2 (0.909) / T-score (-1.3) / Z-score (1.3) Findings are suggestive of osteopenia with a low fracture risk. Left Femur Total: g/cm2 (0.775) / T-score (-1.4) / Z-score (0.6) Left Femoral Neck: g/cm2 (0.660) / T-score (-1.7) / Z-score (0.6) Right Femur Total: g/cm2 (0.766) / T-score (-1.4) / Z-score (0.6) Right Femoral Neck: g/cm2 (0.543) / T-score (-2.8) / Z-score (-0.5) BD/Dexa Bone Density Study IMPRESSION: The patient is considered osteoporotic as outlined below according to World [place] Organization (WHO) criteria with a high fracture risk. Reference Information: The T-score is the number of standard deviations above or below the standard which is normal for young adults at their peak bone mineral density. The World Health Organization (WHO) interprets the T-scores as follows: Above -1 Normal bone density Between -1 and -2.5 Osteopenia Equal to / or below -2.5 Osteoporosis As a practical clinical guideline, osteopenia may be graded as follows: Mild -1 through -1.5 Moderate -1.6 through -2.0 Severe -2.1 through -2.4 The Z-score is the number of standard deviations above or below age-matched controls. A Z-score of less than -1.5 would be considered abnormal. References: 1. NIH Osteoporosis and Related Bone Diseases www osteo.org 2. International Society for Clinical Densitometry www iscd.org 3. National Osteoporosis Foundation www nof.org Electronically Signed: Jovany Tierney MD at 13:18 EDT ,
--- NOTE | 2024-01-04 09:23 | BI_ITS ---
MAMMOGRAPHY - BILATERAL SCREENING REASON FOR EXAM: Female, 78 years old. Routine annual screening examination. PERTINENT HISTORY: Non-contributory. TECHNIQUE: Digital bilateral breast abby (3D mammographic acquisition) in the CC and MLO projections. 2-D mediolateral oblique (MLO) and craniocaudad (CC) views of both breasts were obtained. CAD: Full Field Digital Mammography with Computer Added Detection was performed. COMPARISON: Comparison is made with prior outside examination dated March 10, 2022. FINDINGS: Breast Composition: There are scattered areas of fibroglandular density. There are no dominant masses or suspicious calcifications. Stable calcified 1 cm nodule in the anterior inferior lateral aspect of the right breast. No other significant abnormalities are identified. There has been no significant change since the prior study. BI/SCRN MAMM (CAD)W/ABBY BILAT IMPRESSION: Stable bilateral screening mammogram. Yearly follow-up mammogram recommended. (A) ASSESSMENT CATEGORY: BIRADS Category 2: Benign. A letter regarding these results will be sent to the patient by the facility within 30 days. Approximately 10% of breast cancers are not detected by mammography. A normal mammogram should not delay biopsy of a clinically suspicious abnormality. [id number] Electronically Signed: Jovany Tierney MD at 14:09 EDT ,
== END | disposition home or self-care (01) ==
LOC: OPBD 09:21
PROVIDERS: PCP Family Medicine; Referring Provider Family Medicine; Visit Provider Family Medicine
DX: Z12.31 Encounter for screening mammogram for malignant neoplasm of breast (principal); Z78.0 Asymptomatic menopausal state
CPT/HCPCS: 77063; 77067; 77080

== ENCOUNTER 2024-05-28 10:00 | Outpatient (RCR) | payer MEDICARE, SELFPAY ==
--- NOTE | 2023-12-19 14:10 | HP.PTEVAL ---
Patient's Visit Information Visit Information Visit Information: NIXON HERNÁNDEZ is a 78 year old F referred to Physical Therapy by Dr. Gurinder Kothari MD with a diagnosis of dizziness/balance training. 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 The ENT thought it was not BPPV anymore. She feels very unsteady and some of it is anxiety for part of it. She always feels she is veering in general. She is uncomfortable walking because she feels like she is falling. She does not like to look up. It is bad in dentist chair or hairdresser... she feels slightly dizzy. She does not move in bed and years ago she had spinning in the R ear. She is good with her BP. Objective Objective: Gait: walks with short stride, no hip extension, and R forefoot abducted VOR head and eyes move together horizontal and vertical sitting she gets dizzy with both after 30 seconds of the activity LE MMT: R hip flex 15.3 and L 12.5 R knee ext 16.6 and L 17.4 R knee flex 10.8 and L 7 FGA 8 Instructed pt in how to use a cane as someone suggested she use one and she wanted to see how she would do. After a few seconds she picked up on the sequence of the cane use. Balance/Special Test Scores Functional Gait Assessment Score: 8 % Disability: 73.3400 Lower Extremity Functional Score: 29 Goals Goal 1:: I HEP Goal Time Frame: 6-8 Weeks Goal 2:: Increase balance (FGA was 8 on eval) Goal Time Frame: 6-8 Weeks Goal 3:: Be able to walk with increase stride length and have occ horizontal head turns for about 100 feet without LOB Goal Time Frame: 6-8 Weeks Goal 4:: Pt to feel 50% more confidence in her balance Goal Time Frame: 6-8 Weeks Rehabilitation Potential Rehabilitation Potential: Good Anticipated Interventions Patient/Client Instruction: Educate patient on: Condition and Plan of Care For the Purpose of:: To improve muscle performance and motor function, To improve ability to perform ADL's, To increase tolerance to activity/condition/position, To improve performance and independence with ADL's, To decrease level of supervision to perform tasks, To improve ability of physical actions for home/community/work/leisure, To improve gait and locomotor functions, To improve health of tissue, To decrease soft tissue restriction, To increase flexibility/ROM, To improve endurance, To improve balance and To improve safety with gait Therapeutic Exercise to Include: Strength training, Endurance training, Balance training, Body mechanics, Postural training, Gait and locomotor training, Neuromotor development and Active ROM For the Purpose of:: To improve muscle performance and motor function, To improve ability to perform ADL's, To increase tolerance to activity/condition/position, To improve performance and independence with ADL's, To decrease level of supervision to perform tasks, To improve ability of physical actions for home/community/work/leisure, To improve gait and locomotor functions, To increase flexibility/ROM, To improve endurance, To improve balance and To improve safety with gait Functional Training to Include: Gait training For the Purpose of:: To improve gait and locomotor functions and To improve safety with gait Text: Thank you for the opportunity to evaluate your patient. For Medicare and Medicare HMO plans, please review the plan of care and approve it. It will need to be FAXED BACK to us at [phone] for Medicare purposes. For Medicare only, by signing this I certify the plan of care. Please let me know if there are questions or concerns regarding this plan of care. Physician Signature: Date:
--- NOTE | 2024-01-18 15:27 | HP.PTREVAL ---
Re-Evaluation Intro: Dr. Gurinder Kothari MD, It has been my pleasure to treat NIXON HERNÁNDEZ over the last 9 visits for dizziness/balance training. Please see the progress note below for an update on the physical therapy plan of care! Subjective Subjective: Pt reports that she is not much different but her Dr did increase her anxiety medication. She is now worried about those side affects. She has a little bit of LAZARO Objective Objective/Function: At this point wondering if pt has anxiety and feels less dizzy and more stable with UE support....as demonstrated above Plan Plan Plan: Pt to start PT again in 3 weeks once anxiety meds are kicked in. Then work on gaining confidence with walking and turning her head with a rollator and then wean down to lesser AD 2X/ week for 8 weeks for balance training (static-dynamic), VOR (working on standing to standing and dynamic VOR, gait training, dynamic balance with HEP) HEP: standing horizontal and vertical head and eyes moving from one target to the other target Balance/Gait/Functional tests Balance/Special Test Scores Functional Gait Assessment Score: 8 % Disability: 73.3400 Lower Extremity Functional Score: 29 Goals Goals Goal 1:: I HEP Goal Time Frame: 6-8 Weeks Goal Progress: Progressing Goal 2:: Increase balance (FGA was 8 on eval) Goal Time Frame: 6-8 Weeks Goal 3:: Be able to walk with increase stride length and have occ horizontal head turns for about 100 feet without LOB Goal Time Frame: 6-8 Weeks Goal Progress: Progressing Goal 4:: Pt to feel 50% more confidence in her balance Goal Time Frame: 6-8 Weeks Anticipated Interventions Anticipated Interventions Patient/Client Instruction: Educate patient on: Condition and Plan of Care For the Purpose of:: To improve muscle performance and motor function, To improve ability to perform ADL's, To increase tolerance to activity/condition/position, To improve performance and independence with ADL's, To decrease level of supervision to perform tasks, To improve ability of physical actions for home/community/work/leisure, To improve gait and locomotor functions, To improve health of tissue, To decrease soft tissue restriction, To increase flexibility/ROM, To improve endurance, To improve balance and To improve safety with gait Therapeutic Exercise to Include: Strength training, Endurance training, Balance training, Body mechanics, Postural training, Gait and locomotor training, Neuromotor development and Active ROM For the Purpose of:: To improve muscle performance and motor function, To improve ability to perform ADL's, To increase tolerance to activity/condition/position, To improve performance and independence with ADL's, To decrease level of supervision to perform tasks, To improve ability of physical actions for home/community/work/leisure, To improve gait and locomotor functions, To increase flexibility/ROM, To improve endurance, To improve balance and To improve safety with gait Functional Training to Include: Gait training For the Purpose of:: To improve gait and locomotor functions and To improve safety with gait Re-Evaluation Ending Re-evaluation ending: Please do not hesitate to contact me at [phone] by phone or if you have questions or concerns regarding this new plan of care! Sincerely, Kristen Siu MPT
--- NOTE | 2024-02-06 10:55 | HP.PTREVAL ---
Re-Evaluation Intro: Dr. Gurinder Kothari MD, It has been my pleasure to treat NIXON HERNÁNDEZ over the last 10 visits for dizziness/balance training. Please see the progress note below for an update on the physical therapy plan of care! Subjective Subjective: Pt anxiety is not any better. It actually has gotten worse since she started her new med and she stopped it. She is in counselling and see is seeing her every week. Her dizziness is worse today but it has not been too bad. Objective Objective/Function: Pt walked with rollator with head turns X 3 laps around dept with SBA....Was slight dizzy after and had a hot feeling rolling up her head after Plan Plan Plan: Work on gaining confidence with walking and turning her head with a rollator and then wean down to lesser AD...as anxiety medically is not getting better at this point 2X/ week for 8 weeks for balance training (static-dynamic), VOR (working on standing to standing and dynamic VOR, gait training, dynamic balance with HEP) HEP: standing horizontal and vertical head and eyes moving from one target to the other target Balance/Gait/Functional tests Balance/Special Test Scores Functional Gait Assessment Score: 8 % Disability: 73.3400 Lower Extremity Functional Score: 36 Goals Goals Goal 1:: I HEP Goal Time Frame: 6-8 Weeks Goal Progress: Progressing Goal 2:: Increase balance (FGA was 8 on eval) Goal Time Frame: 6-8 Weeks Goal 3:: Be able to walk with increase stride length and have occ horizontal head turns for about 100 feet without LOB Goal Time Frame: 6-8 Weeks Goal Progress: Progressing Goal 4:: Pt to feel 50% more confidence in her balance Goal Time Frame: 6-8 Weeks Anticipated Interventions Anticipated Interventions Patient/Client Instruction: Educate patient on: Condition and Plan of Care For the Purpose of:: To improve muscle performance and motor function, To improve ability to perform ADL's, To increase tolerance to activity/condition/position, To improve performance and independence with ADL's, To decrease level of supervision to perform tasks, To improve ability of physical actions for home/community/work/leisure, To improve gait and locomotor functions, To improve health of tissue, To decrease soft tissue restriction, To increase flexibility/ROM, To improve endurance, To improve balance and To improve safety with gait Therapeutic Exercise to Include: Strength training, Endurance training, Balance training, Body mechanics, Postural training, Gait and locomotor training, Neuromotor development and Active ROM For the Purpose of:: To improve muscle performance and motor function, To improve ability to perform ADL's, To increase tolerance to activity/condition/position, To improve performance and independence with ADL's, To decrease level of supervision to perform tasks, To improve ability of physical actions for home/community/work/leisure, To improve gait and locomotor functions, To increase flexibility/ROM, To improve endurance, To improve balance and To improve safety with gait Functional Training to Include: Gait training For the Purpose of:: To improve gait and locomotor functions and To improve safety with gait Re-Evaluation Ending Re-evaluation ending: Please do not hesitate to contact me at [phone] by phone or if you have questions or concerns regarding this new plan of care! Sincerely, Kristen Siu MPT
--- NOTE | 2024-04-30 10:03 | HP.PTREVAL_ITS ---
Re-Evaluation Intro: Dr. Gurinder Kothari MD, It has been my pleasure to treat NIXON HERNÁNDEZ over the last 20 visits for dizziness/balance training. Please see the progress note below for an update on the physical therapy plan of care! Subjective Subjective: Yesterday she moved too fast getting up and she was on the verge of dizzy and that lasted for 12 hours. She thinks that she moved too fast but wonder why it did not calm down. She can not get therapy until Jun because the new therapist has to get Medicare approved. She is more aware of eye exercises, her posture and how to navigate things better. She goes to Dr Kothari on . Pt feels 40% more confident in her balance. She is farly confident that she is not going to fall. Objective Objective/Function: FGA: 12 Stairs: Up and down steps recip with 2 hand rails CURB step: up and down with 1 // bar with CGA. Walking with head turns... pt is walking at a much more fluid speed with slight head turns with no LOB. She did feel on the second lap around the dept that she was falling FW so we slowed down and had her pull back and she felt a little better. Walking BW: pt takes very small steps and very hesitant and feels like she will fall with CGA and much encouragement Plan Plan Plan: Add 1X/ week for 4 weeks. Come up with some more exercises to do at home (HEP was down today) and continue to build up walking endurance as well. Work on stairs, curb steps, BW walking confidence with and without the cane. Balance/Gait/Functional tests Balance/Special Test Scores Functional Gait Assessment Score: 12 % Disability: 60.0000 Lower Extremity Functional Score: 22 Goals Goals Goal 1:: I HEP Goal Time Frame: 6-8 Weeks Goal Progress: Progressing Goal 2:: Increase balance (FGA was 8 on eval) Goal Time Frame: 6-8 Weeks Goal Progress: Progressing Goal 3:: Be able to walk with increase stride length and have occ horizontal head turns for about 100 feet without LOB Goal Time Frame: 6-8 Weeks Goal Progress: Progressing Goal 4:: Pt to feel 50% more confidence in her balance Goal Time Frame: 6-8 Weeks Goal Progress: Progressing Anticipated Interventions Anticipated Interventions Patient/Client Instruction: Educate patient on: Condition and Plan of Care For the Purpose of:: To improve muscle performance and motor function, To improve ability to perform ADL's, To increase tolerance to act ivity/condition/position, To improve performance and independence with ADL's, To decrease level of supervision to perform tasks, To improve ability of physical actions for home/community/work/leisure, To improve gait and locomotor functions, To improve health of tissue, To decrease soft tissue restriction, To increase flexibility/ROM, To improve endurance, To improve balance and To improve safety with gait Therapeutic Exercise to Include: Strength training, Endurance training, Balance training, Body mechanics, Postural training, Gait and locomotor training, Neuromotor development and Active ROM For the Purpose of:: To improve muscle performance and motor function, To improve ability to perform ADL's, To increase tolerance to activity/conditio n/position, To improve performance and independence with ADL's, To decrease level of supervision to perform tasks, To improve ability of physical actions for home/community/work/leisure, To improve gait and locomotor functions, To increase flexibility/ROM, To improve endurance, To improve balance and To improve safety with gait Functional Training to Include: Gait training For the Purpose of:: To improve gait and locomotor functions and To improve safety with gait Re-Evaluation Ending Re-evaluation ending: Please do not hesitate to contact me at [phone] by phone or if you have questions or concerns regarding this new plan of care! Sincerely, OSBALDO Royal
--- NOTE | 2024-05-28 10:56 | HP.PTDCSUM ---
Discharge Summary D/C summary: It has been my pleasure to treat NIXON HERNÁNDEZ referred by Dr. Gurinder Kothari MD, with the diagnosis of dizziness/balance training for a total of 24 visit(s). Discharge Date: 05/28/24 Please see the following information for a summary of their discharge status. Subjective Subjective: She still feels unsteady randomly. She has little dizziness sitting here (room is not spinning). Pain LB: Pain Intensity (Out of 10): Unrated Overall Improvement % Improvement: 50 Objective Objective/Function: Gait: 2 laps 4:11seconds. Still SOB and still feels weak in the legs. FGA: 12 Goals Goal 1:: I HEP Goal Progress: Goal Met Goal 2:: Increase balance (FGA was 8 on eval) Goal Progress: Goal Met Goal 3:: Be able to walk with increase stride length and have occ horizontal head turns for about 100 feet without LOB Goal Progress: Goal Met Goal 4:: Pt to feel 50% more confidence in her balance Goal Progress: Not Progressing Plan Plan: Pt should take her cane with her when she feels unsteady. D/C Information Discharge Comments: DC PT to HEP d/c sentence: If there are questions or concerns regarding this patient's physical therapy, please feel free to call me at [phone]. Thank you for the referral of this patient. Sincerely, Kristen Siu, MPT Balance/Gait/Functional tests Balance/Special Test Scores Functional Gait Assessment Score: 12 % Disability: 60.0000 Lower Extremity Functional Score: 27 Improvement % Improvement: 50
== END 2024-05-28 19:00 | disposition home or self-care (01) ==
LOC: PT 10:00
PROVIDERS: PCP Family Medicine; Referring Provider Family Medicine; Visit Provider Family Medicine
DX: R42 Dizziness and giddiness (principal)
CPT/HCPCS: 97110; 97116; 97161; 97530

== ENCOUNTER → 2025-01-07 | Outpatient (CLI) | payer MEDICARE, SELFPAY ==
--- OUTSIDE RECORDS SUMMARY | 2025-01-07 07:31 | XMS RPT_ITS | CCD ---
Author Organization [facility] Inform ion Partnership [facility] Care Team Providers Care Device Test Engineer Name Role Phone Gurinder Vallejo Unavailable [phone] VELVET GARRETT, ss - 4084 TATIANA Attending Arlin vailable SILVERIO DO, ss - 4084 TATIANA Referring Arlin vailable DOLEGA MD [facility] Unavailab le VELVET DO, ss - 4084 TATIANA Attending Arlin vailable SILVERIO DO, ss - 4084 TATIANA Referring Arlin vailable DOLEGA MD [facility] Unavailab le VELVET DO, ss - 4084 TATIANA Attending Arlin vailable SILVERIO DO, ss - 4084 TATIANA Referring Arlin vailable DOLEGA MD [facility] Unavailab karina SILVERIO DO, ss - 4084 TATIANA Attending Arlin vailable SILVERIO DO, ss - 4084 TATIANA Referring Arlin vailable DOLEGA [facility] Unavailab Gurinder Rubio Referring Unavailable Gurinder Kothari Attending Unavailable [facility] Un[facility]ari Attending Unavailable [facility] Unavailable Gurinder Kothari Referring Unavailable [facility] Unavailable Zhang Bridges Attending Unavailable Gurinder Kothari Referring Unavailable Gurinder Kothari Attending Unavailable [facility] Unavailable Medications Current Medications Medication Drug Class(es) Dates Sig (Normalized) Sig (Original) diazePAM 2 mg oral tablet (6 sources) Benzodiazepine Start: 06-21-2022 take 1 tablet by mouth twice daily Diazepam (Valium) 2 mg tablet Active 2 MG PO TWICE A DAY October 09, 2023 12:00am meclizine hydrochloride 25 mg oral tablet (4 sources) Antiemetic Start: 06-21-2022 take 25 mg by mouth three times daily Meclizine Active 25 MG PO THREE TIMES A DAY June 21, 2022 5:11pm potassium chloride 20 meq extended release oral tablet (4 sources) Start: 06-21-2022 take 20 mEq by mouth once daily Potassium Chloride Active 20 MEQ PO DAILY June 21, 2022 1:00am promethazine hydrochloride 25 mg oral tablet (4 sources) Phenothiazine Start: 06-21-2022 take 25 mg by mouth three times daily Promethazine Active 25 MG PO THREE TIMES A DAY June 21, 2022 1:00am Problems Active Problems Problem Classification Problem Date Documented Date Episodic/Chronic Osteoporosis (1 source) Age-related osteoporosis without current pathological fracture; Translations: [Age-related osteoporosis without current pathological fracture] Onset: 10-21-2023 Chronic Other female genital disorders (2 sources) History of gynecological disorder; Translations: [Personal history of other genital system and obstetric disorders] Episodic Past or Other Problems Problem Classification Problem Date Documented Da te Episodic/Chronic Conditions associated with dizziness or vertigo (1 source) Dizziness and giddiness; Translations: [Dizziness and giddiness] Onset: 10-17-2023 Episodic Other screening for suspected conditions (not mental disorders or infectious disease) (3 sources) Mammography abnormal; Translations: [Abnormal mammogram, unspecified] Onset: 01-29-2024 Episodic Results Test Name Value Interpretation Reference Range Facility PT D/C Summary (1)on 024 PT D/C Summary (1) [facility] [address] [place] [address] [address] [place] [address] / REHABILITATION SERVICES DISCHARGE SUMMARY MR#: [id number] Acct: [id number] Name: LAURIE HERNÁNDEZ Rep #: [id number] : 1945 78 From: Kristen ROBLERO Referring Dr.: Dr. Gurinder Kothari MD Status: REG RCR Insurance: [facility] AD[facility] LIFE1 SELF PAY INSURANCE Discharge Summary D/C summary: It has been my pleasure to treat LAURIE HERNÁNDEZ referred by Dr. Gurinder Kothari MD, with the diagnosis of dizziness/balance training for a total of 24 visit(s). Discharge Date: 05/28/24 Please see the following information for a summary of their discharge status. Subjective Subjective: She still feels unsteady randomly. She has little dizziness sitting here (room is not spinning). Pain LB: Pain Intensity (Out of 10): Unrated Overall Improvement % Improvement: 50 Objective Objective/Function: Gait: 2 laps 4:11seconds. Still SOB and still feels weak in the legs. FGA: 12 Goals Goal 1:: I HEP Goal Progress: Goal Met Goal 2:: Increase balance (FGA was 8 on eval) Goal Progress: Goal Met Goal 3:: Be able to walk with increase stride length and have occ horizontal head turns for about 100 feet without LOB Goal Progress: Goal Met Goal 4:: Pt to feel 50% more confidence in her balance Goal Progress: Not Progressing Plan Plan: Pt should take her cane with her when she feels unsteady. D/C Information Discharge Comments: DC PT to HEP d/c sentence: If there are questions or concerns regarding this patient's physical therapy, please feel free to call me at [phone]. Thank you for the referral of this patient. Sincerely, OSBALDO Royal Balance/Gait/Functio nal tests Balance/Special Test Scores Functional Gait Assessment Score: 12 % Disability: 60.0000 Lower Extremity Functional Score: 27 Improvement % Improvement: 50 05/28/24 1056 CC: Dr. Gurinder Kothari MD Signed Normal [facility] Re-Evaluation - PT (1)on Re-Evaluation - PT (1) [facility] [address] [place] [address] [address] [place] [address] / REEVALUATION / MEDICARE RECERTIFICATION PHYSICAL THERAPY MR#: [id number] Acct: [id number] Name: LAURIE HERNÁNDEZ Rep #: [id number] : 1945 78 From: Kristen ROBLERO Referring Dr.: Dr. Gurinder Kothari MD Status:REG RCR Insurance: [employer] [facility] ADV LIFE1 SELF PAY INSURANCE Re-Evaluation Intro: Dr. Gurinder Kothari MD, It has been my pleasure to treat LAURIE HERNÁNDEZ over the last 20 visits for dizziness/balance training. Please see the progress note below for an update on the physical therapy plan of care! Subjective Subjective: Yesterday she moved too fast getting up and she was on the verge of dizzy and that lasted for 12 hours. She thinks that she moved too fast but wonder why it did not calm down. She can not get therapy until Jun because the new therapist has to get Medicare approved. She is more aware of eye exercises, her posture and how to navigate things better. She goes to Dr Kothari on . Pt feels 40% more confident in her balance. She is farly confident that she is not going to fall. Objective Objective/Function: FGA: 12 Stairs: Up and down steps recip with 2 hand rails CURB step: up and down with 1 // bar with CGA. Walking with head turns... pt is walking at a much more fluid speed with slight head turns with no LOB. She did feel on the second lap around the dept that she was falling FW so we slowed down and had her pull back and she felt a little better. Walking BW: pt takes very small steps and very hesitant and feels like she will fall with CGA and much encouragement Plan Plan Plan: Add 1X/ week for 4 weeks. Come up with some more exercises to do at home (HEP was down today) and continue to build up walking endurance as well. Work on stairs, curb steps, BW walking confidence with and without the cane. Balance/Gait/Functio nal tests Balance/Special Test Scores Functional Gait Assessment Score: 12 % Disability: 60.0000 Lower Extremity Functional Score: 22 Goals Goals Goal 1:: I HEP Goal Time Frame: 6-8 Weeks Goal Progress: Progressing Goal 2:: Increase balance (FGA was 8 on eval) Goal Time Frame: 6-8 Weeks Goal Progress: Progressing Goal 3:: Be able to walk with increase stride length and have occ horizontal head turns for about 100 feet without LOB Goal Time Frame: 6-8 Weeks Goal Progress: Progressing Goal 4:: Pt to feel 50% more confidence in her balance Goal Time Frame: 6-8 Weeks Goal Progress: Progressing Anticipated Interventions Anticipated Interventions Patient/Client Instruction: Educate patient on: Condition and Plan of Care For the Purpose of:: To improve muscle performance and motor function, To improve ability to perform ADL's, To increase tolerance to activity/condition/p osition, To improve performance and independence with ADL's, To decrease level of supervision to perform tasks, To improve ability of physical actions for home/community/work/ leisure, To improve gait and locomotor functions, To improve health of tissue, To decrease soft tissue restriction, To increase flexibility/ROM, To improve endurance, To improve balance and To improve safety with gait Therapeutic Exercise to Include: Strength training, Endurance training, Balance training, Body mechanics, Postural training, Gait and locomotor training, Neuromotor development and Active ROM For the Purpose of:: To improve muscle performance and motor function, To improve ability to perform ADL's, To increase tolerance to activity/condition/p osition, To improve performance and independence with ADL's, To decrease level of supervision to perform tasks, To improve ability of physical actions for home/community/work/ leisure, To improve gait and locomotor functions, To increase flexibility/ROM, To improve endurance, To improve balance and To improve safety with gait Functional Training to Include: Gait training For the Purpose of:: To improve gait and locomotor functions and To improve safety with gait Re-Evaluation Ending Re-evaluation ending: Please do not hesitate to contact me at [phone] by phone or if you have questions or concerns regarding this new plan of care! Sincerely, Kristen Siu, OSBALDO 04/30/24 1003 CC: Dr. Gurinder Kothari MD Signed For Medicare only, by signing this I certify the plan of care. Physicians Signature Date Normal [facility] Re-Evaluation - PT (1)on Re-Evaluation - PT (1) [facility] Physical [facility] [address] [place] [address] / REEVALUATION / MEDICARE RECERTIFICATION PHYSICAL THERAPY MR#: [id number] Acct: [id number] Name: BETTYLAURIE CASTILLO Rep #: [id number] : 1945 78 From: Kristen Siu MPT Referring Dr.: Dr. Gurinder Kothari MD Status:REG RCR Insurance: [employer] MCR ADV LIFE1 SELF PAY INSURANCE Re-Evaluation Intro: Dr. Gurinder Kothari MD, It has been my pleasure to treat LAURIE HERNÁNDEZ over the last 10 visits for dizziness/balance training. Please see the progress note below for an update on the physical therapy plan of care! Subjective Subjective: Pt anxiety is not any better. It actually has gotten worse since she started her new med and she stopped it. She is in counselling and see is seeing her every week. Her dizziness is worse today but it has not been too bad. Objective Objective/Function: Pt walked with rollator with head turns X 3 laps around dept with SBA....Was slight dizzy after and had a hot feeling rolling up her head after Plan Plan Plan: Work on gaining confidence with walking and turning her head with a rollator and then wean down to lesser AD...as anxiety medically is not getting better at this point 2X/ week for 8 weeks for balance training (static-dynamic), VOR (working on standing to standing and dynamic VOR, gait training, dynamic balance with HEP) HEP: standing horizontal and vertical head and eyes moving from one target to the other target Balance/Gait/Functio nal tests Balance/Special Test Scores Functional Gait Assessment Score: 8 % Disability: 73.3400 Lower Extremity Functional Score: 36 Goals Goals Goal 1:: I HEP Goal Time Frame: 6-8 Weeks Goal Progress: Progressing Goal 2:: Increase balance (FGA was 8 on eval) Goal Time Frame: 6-8 Weeks Goal 3:: Be able to walk with increase stride length and have occ horizontal head turns for about 100 feet without LOB Goal Time Frame: 6-8 Weeks Goal Progress: Progressing Goal 4:: Pt to feel 50% more confidence in her balance Goal Time Frame: 6-8 Weeks Anticipated Interventions Anticipated Interventions Patient/Client Instruction: Educate patient on: Condition and Plan of Care For the Purpose of:: To improve muscle performance and motor function, To improve ability to perform ADL's, To increase tolerance to activity/condition/p osition, To improve performance and independence with ADL's, To decrease level of supervision to perform tasks, To improve ability of physical actions for home/community/work/ leisure, To improve gait and locomotor functions, To improve health of tissue, To decrease soft tissue restriction, To increase flexibility/ROM, To improve endurance, To improve balance and To improve safety with gait Therapeutic Exercise to Include: Strength training, Endurance training, Balance training, Body mechanics, Postural training, Gait and locomotor training, Neuromotor development and Active ROM For the Purpose of:: To improve muscle performance and motor function, To improve ability to perform ADL's, To increase tolerance to activity/condition/p osition, To improve performance and independence with ADL's, To decrease level of supervision to perform tasks, To improve ability of physical actions for home/community/work/ leisure, To improve gait and locomotor functions, To increase flexibility/ROM, To improve endurance, To improve balance and To improve safety with gait Functional Training to Include: Gait training For the Purpose of:: To improve gait and locomotor functions and To improve safety with gait Re-Evaluation Ending Re-evaluation ending: Please do not hesitate to contact me at [phone] by phone or if you have questions or concerns regarding this new plan of care! Sincerely, OSBALDO Royal 02/06/24 1055 CC: Dr. Gurinder Kothari MD Signed For Medicare only, by signing this I certify the plan of care. Physicians Signature Date Normal [facility] Re-Evaluation - PT (1)on Re-Evaluation - PT (1) [facility] [address] [place] [address] / REEVALUATION / MEDICARE RECERTIFICATION PHYSICAL THERAPY MR#: [id number] Acct: [id number] Name: LAURIE HERNÁNDEZ Rep #: [id number] : 1945 78 From: Kristen ROBLERO Referring Dr.: Dr. Christopher Ranney, MD Status:REG RCR Insurance: [employer] MCR ADV LIFE1 SELF PAY INSURANCE Re-Evaluation Intro: Dr. Gurinder Kothari MD, It has been my pleasure to treat LAURIE HERNÁNDEZ over the last 9 visits for dizziness/balance training. Please see the progress note below for an update on the physical therapy plan of care! Subjective Subjective: Pt reports that she is not much different but her Dr did increase her anxiety medication. She is now worried about those side affects. She has a little bit of LAZARO Objective Objective/Function: At this point wondering if pt has anxiety and feels less dizzy and more stable with UE support....as demonstrated above Plan Plan Plan: Pt to start PT again in 3 weeks once anxiety meds are kicked in. Then work on gaining confidence with walking and turning her head with a rollator and then wean down to lesser AD 2X/ week for 8 weeks for balance training (static-dynamic), VOR (working on standing to standing and dynamic VOR, gait training, dynamic balance with HEP) HEP: standing horizontal and vertical head and eyes moving from one target to the other target Balance/Gait/Functio nal tests Balance/Special Test Scores Functional Gait Assessment Score: 8 % Disability: 73.3400 Lower Extremity Functional Score: 29 Goals Goals Goal 1:: I HEP Goal Time Frame: 6-8 Weeks Goal Progress: Progressing Goal 2:: Increase balance (FGA was 8 on eval) Goal Time Frame: 6-8 Weeks Goal 3:: Be able to walk with increase stride length and have occ horizontal head turns for about 100 feet without LOB Goal Time Frame: 6-8 Weeks Goal Progress: Progressing Goal 4:: Pt to feel 50% more confidence in her balance Goal Time Frame: 6-8 Weeks Anticipated Interventions Anticipated Interventions Patient/Client Instruction: Educate patient on: Condition and Plan of Care For the Purpose of:: To improve muscle performance and motor function, To improve ability to perform ADL's, To increase tolerance to activity/condition/p osition, To improve performance and independence with ADL's, To decrease level of supervision to perform tasks, To improve ability of physical actions for home/community/work/ leisure, To improve gait and locomotor functions, To improve health of tissue, To decrease soft tissue restriction, To increase flexibility/ROM, To improve endurance, To improve balance and To improve safety with gait Therapeutic Exercise to Include: Strength training, Endurance training, Balance training, Body mechanics, Postural training, Gait and locomotor training, Neuromotor development and Active ROM For the Purpose of:: To improve muscle performance and motor function, To improve ability to perform ADL's, To increase tolerance to activity/condition/p osition, To improve performance and independence with ADL's, To decrease level of supervision to perform tasks, To improve ability of physical actions for home/community/work/ leisure, To improve gait and locomotor functions, To increase flexibility/ROM, To improve endurance, To improve balance and To improve safety with gait Functional Training to Include: Gait training For the Purpose of:: To improve gait and locomotor functions and To improve safety with gait Re-Evaluation Ending Re-evaluation ending: Please do not hesitate to contact me at [phone] by phone or if you have questions or concerns regarding this new plan of care! Sincerely, Kristen Siu, MPT 01/18/24 1527 CC: Dr. Gurinder Kothari MD Signed For Medicare only, by signing this I certify the plan of care. Physicians Signature Date [facility] Dexa Bone Density Studyon Dexa Bone Density Study [facility] Imaging Services [address] [place] [address] Dexa Bone Density Study MR#: [id number] Acct: [id number] Name: LAURIE HERNÁNDEZ Rep #: [id number] : 1945 F 78 From: Jovany mendoza MD PCP: Dr. Gurinder Kothari MD Status: REG CLI Study: Dexa Bone Density Study Date of Exam: 01/04/24 Exam# [id number] Ordering Dr: Gurinder Kothari [id number] STUDY: DUAL ENERGY X-RAY ABSORPTIOMETRY / DXA REASON FOR EXAM: Female, 78 years old. [id number] TECHNIQUE: Bone Mineral Density (BMD) measurements of lumbar spine and bilateral hips were obtained. COMPARISON: None. FINDINGS: Lumbar Spine (L1-L4): g/cm2 (0.909) / T-score (-1.3) / Z-score (1.3) Findings are suggestive of osteopenia with a low fracture risk. Left Femur Total: g/cm2 (0.775) / T-score (-1.4) / Z-score (0.6) Left Femoral Neck: g/cm2 (0.660) / T-score (-1.7) / Z-score (0.6) Right Femur Total: g/cm2 (0.766) / T-score (-1.4) / Z-score (0.6) Right Femoral Neck: g/cm2 (0.543) / T-score (-2.8) / Z-score (-0.5) BD/Dexa Bone Density Study IMPRESSION: The patient is considered osteoporotic as outlined below according to World [place] Organization (WHO) criteria with a high fracture risk. Reference Information: The T-score is the number of standard deviations above or below the standard which is normal for young adults at their peak bone mineral density. The World Health Organization (WHO) interprets the T-scores as follows: Above -1 Normal bone density Between -1 and -2.5 Osteopenia Equal to / or below -2.5 Osteoporosis As a practical clinical guideline, osteopenia may be graded as follows: Mild -1 through -1.5 Moderate -1.6 through -2.0 Severe -2.1 through -2.4 The Z-score is the number of standard deviations above or below age-matched controls. A Z-score of less than -1.5 would be considered abnormal. References: 1. NIH Osteoporosis and Related Bone Diseases www osteo.org 2. International Society for Clinical Densitometry www iscd.org 3. National Osteoporosis Foundation www nof.org Electronically Signed: Jovany Tierney MD at 13:18 EDT , CC: Dr. Gurinder Kothari MD Ore Sampler: Signed Normal [facility] SCRN MAMM (CAD)W/ABBY BILATo n 01-04-2024 SCRN MAMM (CAD)W/ABBY BILAT [facility] Imaging Services [address] [place], [place] [address] SCRN MAMM (CAD)W/ABBY BILAT MR#: [id number] Acct: [id number] Name: LAURIE HERNÁNDEZ Rep #: [id number] : 1945 F 78 From: Jovany mendoza MD PCP: Dr. Gurinder Kothari MD Status: REG [facility] Study: SCRN MAMM (CAD)W/ABBY BILAT Date of Exam: 12/11 11/02 Exam# [id number] Ordering Dr: Gurinder Kothari [id number] MAMMOGRAPHY - BILATERAL SCREENING REASON FOR EXAM: Female, 78 years old. Routine annual screening examination. PERTINENT HISTORY: Non-contributory. TECHNIQUE: Digital bilateral breast abby (3D mammographic acquisition) in the CC and MLO projections. 2-D mediolateral oblique (MLO) and craniocaudad (CC) views of both breasts were obtained. CAD: Full Field Digital Mammography with Computer Added Detection was performed. COMPARISON: Comparison is made with prior outside examination dated March 10, 2022. FINDINGS: Breast Composition: There are scattered areas of fibroglandular density. There are no dominant masses or suspicious calcifications. Stable calcified 1 cm nodule in the anterior inferior lateral aspect of the right breast. No other significant abnormalities are identified. There has been no significant change since the prior study. BI/SCRN MAMM (CAD)W/ABBY BILAT IMPRESSION: Stable bilateral screening mammogram. Yearly follow-up mammogram recommended. (A) ASSESSMENT CATEGORY: BIRADS Category 2: Benign. A letter regarding these results will be sent to the patient by the facility within 30 days. Approximately 10% of breast cancers are not detected by mammography. A normal mammogram should not delay biopsy of a clinically suspicious abnormality. [id number] Electronically Signed: Jovany Tierney MD at 14:09 EDT , CC: Dr. Gurinder Kothari MD Ore Sampler: Signed Normal [facility] Inital Evaluation (1) - PTon 12-19-2023 Inital Evaluation (1) - PT [facility] [address] [place] [address]. [address] [place] [address] / REHABILITATION SERVICES INITIAL EVALUATION MR#: [id number] Acct: [id number] Name: LAURIE HERNÁNDEZ Rep #: [id number] : 1945 78 From: Kristen ROBLERO Referring Dr.: Dr. Gurinder Kothari MD Status: REG R Insurance: [facility] ADV LIFE1 SELF PAY INSURANCE Patient's Visit Information Visit Information Visit Information: LAURIE HERNÁNDEZ is a 78 year old F referred to Physical Therapy by Dr. Gurinder Kothari MD with a diagnosis of dizziness/balance training. 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 The ENT thought it was not BPPV anymore. She feels very unsteady and some of it is anxiety for part of it. She always feels she is veering in general. She is uncomfortable walking because she feels like she is falling. She does not like to look up. It is bad in dentist chair or hairdresser... she feels slightly dizzy. She does not move in bed and years ago she had spinning in the R ear. She is good with her BP. Objective Objective: Gait: walks with short stride, no hip extension, and R forefoot abducted VOR head and eyes move together horizontal and vertical sitting she gets dizzy with both after 30 seconds of the activity LE MMT: R hip flex 15.3 and L 12.5 R knee ext 16.6 and L 17.4 R knee flex 10.8 and L 7 FGA 8 Instructed pt in how to use a cane as someone suggested she use one and she wanted to see how she would do. After a few seconds she picked up on the sequence of the cane use. Balance/Special Test Scores Functional Gait Assessment Score: 8 % Disability: 73.3400 Lower Extremity Functional Score: 29 Goals Goal 1:: I HEP Goal Time Frame: 6-8 Weeks Goal 2:: Increase balance (FGA was 8 on eval) Goal Time Frame: 6-8 Weeks Goal 3:: Be able to walk with increase stride length and have occ horizontal head turns for about 100 feet without LOB Goal Time Frame: 6-8 Weeks Goal 4:: Pt to feel 50% more confidence in her balance Goal Time Frame: 6-8 Weeks Rehabilitation Potential Rehabilitation Potential: Good Anticipated Interventions Patient/Client Instruction: Educate patient on: Condition and Plan of Care For the Purpose of:: To improve muscle performance and motor function, To improve ability to perform ADL's, To increase tolerance to activity/condition/p osition, To improve performance and independence with ADL's, To decrease level of supervision to perform tasks, To improve ability of physical actions for home/community/work/ leisure, To improve gait and locomotor functions, To improve health of tissue, To decrease soft tissue restriction, To increase flexibility/ROM, To improve endurance, To improve balance and To improve safety with gait Therapeutic Exercise to Include: Strength training, Endurance training, Balance training, Body mechanics, Postural training, Gait and locomotor training, Neuromotor development and Active ROM For the Purpose of:: To improve muscle performance and motor function, To improve ability to perform ADL's, To increase tolerance to activity/condition/p osition, To improve performance and independence with ADL's, To decrease level of supervision to perform tasks, To improve ability of physical actions for home/community/work/ leisure, To improve gait and locomotor functions, To increase flexibility/ROM, To improve endurance, To improve balance and To improve safety with gait Functional Training to Include: Gait training For the Purpose of:: To improve gait and locomotor functions and To improve safety with gait Text: Thank you for the opportunity to evaluate your patient. For Medicare and Medicare HMO plans, please review the plan of care and approve it. It will need to be FAXED BACK to us at [phone] for Medicare purposes. For Medicare only, by signing this I certify the plan of care. Please let me know if there are questions or concerns regarding this plan of care. Physician Signature: D ate: 12/19/23 1410 CC: Dr. Gurinder Kothari MD Signed Normal [facility] Basophil percentageOrdered B y: Gurinder Kothari on 10-12-2023 Bilirubin [Mass/Vol] 0.80 mg/dL 0.20-1.00 [facility] Comment on above: For patients on eltr ombopag therapy, use of Dimension Cedar TBIL is not recommended. Chloride [Moles/Vol] 99 mmol/L 98-107 [facility] Cholesterol [Mass/Vol] 152 mg/dL <200 [facility] Comment on above: <200 mg/dL Desirable 200-240 mg/dL Borderline >240 mg/dL High Risk Glucose [Mass/Vol] 95 mg/dL 74-106 [facility] Potassium [Moles/Vol] 3.3 mmol/L 3.5-5.1 [facility] Protein [Mass/Vol] 7.1 g/dL 6.4-8.2 [facility] Sodium [Moles/Vol] 138 mmol/L 136-145 [facility] Triglyceride [Mass/Vol] 145 mg/dL <199 [facility] Comment on above: The drugs N-Acetylcy steine and Metamizole may falsely depress this assay.Serum Triglycerides Reference Interval Normal <150 mg/dL Borderline high 150 - 199 mg/dL High 200 - 499 mg/dL Very High > or = 500 mg/dL Comprehensive Metabolic Prof msantonia 10-12-2023 Albumin [Mass/Vol] 3.3 g/dL Normal 3.2-5.0 [facility] Comment on above: Order Comment: Order Date: 07/20/23Order Info: [id number] - CMPOrder Info: [id number] - LIPIDOrder Info: [id number] - TSH Performed By: #### L 501.9520, L506.1000, L500.4050, L500.4100, L509.1000 ####[facility] [address] [facility] [place], [address] Albumin/Globulin [Mass ratio] 0.9 {ratio} Normal 0.9-2.4 [facility] Comment on above: Order Comment: Order Date: 07/20/23Order Info: [id number] - CMPOrder Info: [id number] - LIPIDOrder Info: [id number] - TSH Performed By: #### L 501.9520, L506.1000, L500.4050, L500.4100, L509.1000 ####[facility] [address] [facility] [place], [address] ALK P 66 U/L Normal 45-117 [facility] Comment on above: Order Comment: Order Date: 07/20/23Order Info: [id number] - CMPOrder Info: [id number] - LIPIDOrder Info: [id number] - TSH Performed By: #### L 501.9520, L506.1000, L500.4050, L500.4100, L509.1000 ####[facility] [address] [place], [address] ALT [Catalytic activity/Vol] 21 U/L Normal 13-56 [facility] Comment on above: Order Comment: Order Date: 07/20/23Order Info: [id number] - CMPOrder Info: [id number] - LIPIDOrder Info: [id number] - TSH Performed By: #### L 501.9520, L506.1000, L500.4050, L500.4100, L509.1000 ####[facility] [address] [place], [address] AST [Catalytic activity/Vol] 17 U/L Normal 15-37 [facility] Comment on above: Order Comment: Order Date: 07/20/23Order Info: [id number] - CMPOrder Info: [id number] - LIPIDOrder Info: [id number] - TSH Performed By: #### L 501.9520, L506.1000, L500.4050, L500.4100, L509.1000 ####[facility] [address] [place], [address] Bilirubin [Mass/Vol] 0.80 mg/dL Normal 0.20-1.00 [facility] Comment on above: Order Comment: Order Date: 07/20/23Order Info: [id number] - CMPOrder Info: [id number] - LIPIDOrder Info: [id number] - TSH Result Comment: For patients on eltrombopag therapy, use of Dimension Cedar TBIL is not recommended. Performed By: #### L 501.9520, L506.1000, L500.4050, L500.4100, L509.1000 ####[facility] [address] [place], [address] BUN/CRE 15.0 RATIO Normal 10-20 [facility] Comment on above: Order Comment: Order Date: 07/20/23Order Info: [id number] - CMPOrder Info: [id number] - LIPIDOrder Info: [id number] - TSH Performed By: #### L 501.9520, L506.1000, L500.4050, L500.4100, L509.1000 ####[facility] [address] [place], [address] CA,Total 9.2 mg/dL Normal 8.5-10.1 [facility] Comment on above: Order Comment: Order Date: 07/20/23Order Info: [id number] - CMPOrder Info: [id number] - LIPIDOrder Info: 3 - TSH Performed By: #### L 501.9520, L506.1000, L500.4050, L500.4100, L509.1000 ####[facility] [address] [place], [address] Chloride [Moles/Vol] 99 mmol/L Normal 98-107 [facility] Comment on above: Order Comment: Order Date: 07/20/23Order Info: [id number] - CMPOrder Info: [id number] - LIPIDOrder Info: 3 - TSH Performed By: #### L 501.9520, L506.1000, L500.4050, L500.4100, L509.1000 ####[facility] [address] [place], [address] CO2 [Moles/Vol] 33.0 mmol/L High 21.0-32.0 [facility] Comment on above: Order Comment: Order Date: 07/20/23Order Info: [id number] - CMPOrder Info: [id number] - LIPIDOrder Info: [id number] - TSH Performed By: #### L 501.9520, L506.1000, L500.4050, L500.4100, L509.1000 ####[facility] [address] [place], [address] Creatinine [Mass/Vol] 0.80 mg/dL Normal 0.55-1.02 [facility] Comment on above: Order Comment: Order Date: 07/20/23Order Info: [id number] - CMPOrder Info: [id number] - LIPIDOrder Info: 3 - TSH Result Comment: The validity of the calculated GFR GFRAA in patients over 70 years has not been determined. Clinical correlation is essential. Performed By: #### L 501.9520, L506.1000, L500.4050, L500.4100, L509.1000 ####[facility] [address] [place], [address] EST GFR - AA 89 mL/min Normal >60 [facility] Comment on above: Order Comment: Order Date: 07/20/23Order Info: [id number] - CMPOrder Info: [id number] - LIPIDOrder Info: [id number] - TSH Result Comment: Afri can Kazakh GFR Calc Performed By: #### L 501.9520, L506.1000, L500.4050, L500.4100, L509.1000 ####[facility] [address] [place], [address] GAP 6 Normal 5-15 [facility] Comment on above: Order Comment: Order Date: 07/20/23Order Info: [id number] - CMPOrder Info: [id number] - LIPIDOrder Info: [id number] - TSH Performed By: #### L 501.9520, L506.1000, L500.4050, L500.4100, L509.1000 ####[facility] [address] [place], [address] GFR/1.73 sq M.predicted among non-blacks MDRD (S/P/Bld) [Vol rate/Area] 74 mL/min/{1.73_m2} Normal >60 [facility] Comment on above: Order Comment: Order Date: 07/20/23Order Info: [id number] - CMPOrder Info: [id number] - LIPIDOrder Info: [id number] - TSH Result Comment: Non- GFR Calc Performed By: #### L 501.9520, L506.1000, L500.4050, L500.4100, L509.1000 ####[facility] [address] [place], [address] Globulin (S) [Mass/Vol] 3.8 g/dL Normal 2.2-4.2 [facility] Comment on above: Order Comment: Order Date: 07/20/23Order Info: [id number] - CMPOrder Info: [id number] - LIPIDOrder Info: [id number] - TSH Performed By: #### L 501.9520, L506.1000, L500.4050, L500.4100, L509.1000 ####[facility] [address] [place], [address] Glucose [Mass/Vol] 95 mg/dL Normal 74-106 [facility] Comment on above: Order Comment: Order Date: 07/20/23Order Info: [id number]- - CMPOrder Info: [id number] - LIPIDOrder Info: 3 - TSH Performed By: #### L 501.9520, L506.1000, L500.4050, L500.4100, L509.1000 ####[facility] [address] [place], [address] Potassium [Moles/Vol] 3.3 mmol/L Low 3.5-5.1 [facility] Comment on above: Order Comment: Order Date: 07/20/23Order Info: 07- - CMPOrder Info: [id number] - LIPIDOrder Info: [id number] - TSH Performed By: #### L 501.9520, L506.1000, L500.4050, L500.4100, L509.1000 ####[facility] [address] [place], [address] Sodium [Moles/Vol] 138 mmol/L Normal 136-145 [facility] Comment on above: Order Comment: Order Date: 07/20/23Order Info: [id number] - CMPOrder Info: [id number] - LIPIDOrder Info: [id number] - TSH Performed By: #### L 501.9520, L506.1000, L500.4050, L500.4100, L509.1000 ####[facility] [address] [place], [address] T PROT 7.1 g/dL Normal 6.4-8.2 [facility] Comment on above: Order Comment: Order Date: 07/20/23Order Info: [id number] - CMPOrder Info: [id number] - LIPIDOrder Info: [id number] - TSH Performed By: #### L 501.9520, L506.1000, L500.4050, L500.4100, L509.1000 ####[facility] [address] [place], [address] Urea nitrogen [Mass/Vol] 12 mg/dL Normal 7-18 [facility] Comment on above: Order Comment: Order Date: 07/20/23Order Info: [id number] - CMPOrder Info: [id number] - LIPIDOrder Info: [id number] - TSH Performed By: #### L 501.9520, L506.1000, L500.4050, L500.4100, L509.1000 ####[facility] [address] [place], [place], [id number] Laboratory - Chemistry and C hemistry - challengeOrdered By: Gurinder Kothari on 10-12-2023 Albumin/Globulin [Mass ratio] 0.9 {ratio} 0.9-2.4 [facility] ALP [Catalytic activity/Vol] 66 U/L 45-117 [facility] ALT [Catalytic activity/Vol] 21 U/L 13-56 [facility] Cholesterol in HDL [Mass/Vol] 56 mg/dL >40 [facility] Comment on above: The drugs N-Acetylcy steine and Metamizole may falsely depress this assay. Reference Range HDL <40 mg/dL Low HDL Cholesterol HDL >or= 60 mg/dL High HDL Cholesterol Cholesterol in LDL [Mass/Vol] 67 mg/dL 0-130 [facility] CO2 [Moles/Vol] 33.0 mmol/L 21.0-32.0 [facility] Globulin (S) [Mass/Vol] 3.8 g/dL 2.2-4.2 [facility] Urea nitrogen/Creatinine [Mass ratio] 15.0 mg/mg 10- [facility] Lipid Profileon 10-12-2023 Cholesterol [Mass/Vol] 152 mg/dL Normal 200 [facility] Comment on above: Order Comment: Order Date: 07/20/23Order Info: [id number]- - CMPOrder Info: - LIPIDOrder Info: [id number] - TSH Result Comment: <200 mg/dL Desirable 200-240 mg/dL Borderline >240 mg/dL High Risk Performed By: #### L 501.9520, L506.1000, L500.4050, L500.4100, L509.1000 ####[facility] [address] [place], [address] Cholesterol in HDL [Mass/Vol] 56 mg/dL Normal [facility] Comment on above: Order Comment: Order Date: 07/20/23Order Info: [id number] - CMPOrder Info: - LIPIDOrder Info: [id number] - TSH Result Comment: The drugs N-Acetylcysteine and Metamizole may falsely depress this assay. Reference Range HDL <40 mg/dL Low HDL Cholesterol HDL >or= 60 mg/dL High HDL Cholesterol Performed By: #### L 501.9520, L506.1000, L500.4050, L500.4100, L509.1000 ####[facility] [address] [place], [address] Cholesterol in LDL [Mass/Vol] 67 mg/dL Normal 0-130 [facility] Comment on above: Order Comment: Order Date: 07/20/23Order Info: [id number] - CMPOrder Info: - LIPIDOrder Info: [id number] - TSH Performed By: #### L 501.9520, L506.1000, L500.4050, L500.4100, L509.1000 ####[facility] [address] [place], [place], [address] Cholesterol in VLDL [Mass/Vol] 29 mg/dL Normal 5-40 [facility] Comment on above: Order Comment: Order Date: 07/20/23Order Info: [id number] - CMPOrder Info: [id number] - LIPIDOrder Info: [id number] - TSH Performed By: #### L 501.9520, L506.1000, L500.4050, L500.4100, L509.1000 ####[facility] [address] [place], [place], [address] Triglyceride [Mass/Vol] 145 mg/dL Normal [facility] Comment on above: Order Comment: Order Date: 07/20/23Order Info: [id number] - CMPOrder Info: [id number] - LIPIDOrder Info: [id number] - TSH Result Comment: The drugs N-Acetylcysteine and Metamizole may falsely depress this assay. Serum Triglycerides Reference Interval Normal <150 mg/dL Borderline high 150 - 199 mg/dL High 200 - 499 mg/dL Very High > or = 500 mg/dL Performed By: #### L 501.9520, L506.1000, L500.4050, L500.4100, L509.1000 ####[facility] [address] [place], [place], [address] No Panel InformationOrdered By: Gurinder Kothari on 10-12-2023 Estimated GFR (MDRD) Amer 89 mL/min >60 [facility] Comment on above: GFR Calc Estimated GFR (MDRD) Non-Af Amer 74 mL/min >60 [facility] Comment on above: Non- GFR Calc Parathyroid Hormone (Intact) 84.4 pg/mL 18.4-80.1 [facility] Vitamin D 25-Hydroxy 39.2 ng/mL [facility] Comment on above: Vitamin D 25(OH) Sta tus Range Deficiency <20 ng/mL (50nmol/L) Insufficiency 20 - 30 ng/mL (50 - 75 nmol/L) Sufficiency 30 - 100 ng/mL (75 - 250 nmol/L) Toxicity >100 ng/mL (>250 nmol/L) VLDL Cholesterol 29 mg/dL 5-40 [facility] PTHINon 10-12-2023 PTH 84.4 pg/mL High 18.4-80.1 [facility] Comment on above: Order Comment: Order Date: 07/20/23Order Info: [id number] - PTHIN Performed By: #### L 501.9520, L506.1000, L500.4050, L500.4100, L509.1000 ####[facility] [address] [place], [address] Serum or plasma calcium emily urement (mass/volume)Ordered By: Gurinder Kothari on 10-12-2023 Calcium [Mass/Vol] 9.2 mg/dL 8.5-10.1 [facility] Serum or plasma creatinine m easurement (mass/volume)Ordered By: Gurinder Kothari on 10-12-2023 Creatinine [Mass/Vol] 0.80 mg/dL 0.55-1.02 [facility] Comment on above: The validity of the calculated GFR & GFRAA in patients over 70 years has not been determined. Clinical correlation is essential. Serum or plasma thyroid stim ulating hormone (TSH) measurement (units/volume)Ordered By: Gurinder Kothari on 10-12-2023 TSH Qn 3.03 uIU/mL 0.358-3.74 [facility] Serum or plasma urea nitroge n measurement (mass/volume)Ordered By: Gurinder Kothari on 10-12-2023 Urea nitrogen [Mass/Vol] 12 mg/dL 7-18 [facility] Thin prep Papanicolaou smear with manual screeningOrdered By: Gurinder Kothari on 10-12-2023 Thin prep Papanicolaou smear with manual screening 3.3 g/dL 3.2-5.0 [facility] Thin prep Papanicolaou smear with manual screening 17 U/L 15-37 [facility] Thin prep Papanicolaou smear with manual screening 6 5-15 [facility] Thyroid Stim Hormone (TSH)on 10-12-2023 TSH 3.03 uIU/mL Normal 0.358-3.74 [facility] Comment on above: Order Comment: Order Date: 07/20/23Order Info: [id number] - CMPOrder Info: [id number] - LIPIDOrder Info: [id number] - TSH Performed By: #### L 501.9520, L506.1000, L500.4050, L500.4100, L509.1000 ####[facility] [address] [place], [address] Vitamin D,25 Hydroxyon 10-11 Vitamin D 25-OH 39.2 ng/mL Normal [facility] Comment on above: Order Comment: Order Date: 07/20/23 Order Info: [id number] - VITD25 Result Comment: Kathryn min D 25(OH) Status Range Deficiency <20 ng/mL (50nmol/L) Insufficiency 20 - 30 ng/mL (50 - 75 nmol/L) Sufficiency 30 - 100 ng/mL (75 - 250 nmol/L) Toxicity >100 ng/mL (>250 nmol/L) Performed By: #### L 501.9520, L506.1000, L500.4050, L500.4100, L509.1000 #### [facility] [address] [place], [address] 12 Lead EKGon 10-09-2023 12 Lead EKG [facility] [address] [place] [address] 12 Lead EKG 10/09/23 1215 MR#: [id number] Acct: [id number] Name: LAURIE HERNÁNDEZ Rep #: [id number] : 1945 77 From: Bob Renner MD Attending Dr: Status: DEP ER Ordering Dr: Zhang Bridges DO Date: 10/09/23 Location: ED Sex: F C Admitted: Test Reason : GENERAL Blood Pressure : / mmHG Vent. Rate : 062 BPM Atrial Rate : 062 BPM P-R Int : 186 ms QRS Dur : 088 ms QT Int : 442 ms P-R-T Axes : 060 -13 024 degrees QTc Int : 448 ms Normal sinus rhythm Minimal voltage criteria for LVH, may be normal variant ( R in aVL ) Borderline ECG Confirmed by BOB RENNER MD ([id number]), supervising editor trailer GALILEA HUYNH ([id number]) on 10/12/2023 11:35:00 AM Referred By: Confirmed By:BOB RENNER MD 10/12/23 1135 Date Bob Renner MD CC: Dr. Gurinder Kothari MD; Dr. Zhang Bridges DO Signed Normal [facility] Absolute lymphocyte countOrd ered By: Zhang Bridges on 10-09-2023 Lymphocytes Auto (Unsp spec) [#/Vol] 1.25 10*3/uL 0.83-4.51 [facility] Automated lymphocyte count a s percentage of total leukocytesOrdered By: Zhang Bridges on 10-09-2023 Lymphocytes/100 WBC Auto (Unsp spec) 12.3 % 19-41 [facility] Basic Metabolic Profile (BMP )on 10-09-2023 BUN/CRE 18.7 RATIO Normal 10-20 [facility] Comment on above: Order Comment: 'TROP ' Serial specimen #1, #2 or #3: 1 Performed By: #### L 500.2500, L501.4020, L100.0100, L505.5000 #### [facility] [address] [place], [address] CA,Total 9.4 mg/dL Normal 8.5-10.1 [facility] Comment on above: Order Comment: 'TROP ' Serial specimen #1, #2 or #3: 1 Performed By: #### L 500.2500, L501.4020, L100.0100, L505.5000 #### [facility] [address] [place], [address] Chloride [Moles/Vol] 100 mmol/L Normal 98-107 [facility] Comment on above: Order Comment: 'TROP ' Serial specimen #1, #2 or #3: 1 Performed By: #### L 500.2500, L501.4020, L100.0100, L505.5000 #### [facility] [address] [place], [address] CO2 [Moles/Vol] 29.0 mmol/L Normal 21.0-32.0 [facility] Comment on above: Order Comment: 'TROP ' Serial specimen #1, #2 or #3: 1 Performed By: #### L 500.2500, L501.4020, L100.0100, L505.5000 #### [facility] [address] [place], [address] Creatinine [Mass/Vol] 0.75 mg/dL Normal 0.55-1.02 [facility] Comment on above: Order Comment: 'TROP ' Serial specimen #1, #2 or #3: 1 Result Comment: The validity of the calculated GFR GFRAA in patients over 70 years has not been determined. Clinical correlation is essential. Performed By: #### L 500.2500, L501.4020, L100.0100, L505.5000 #### [facility] [address] [place], [address] EST GFR - AA 96 mL/min Normal >60 [facility] Comment on above: Order Comment: 'TROP ' Serial specimen #1, #2 or #3: 1 Result Comment: Afri can Kazakh GFR Calc Performed By: #### L 500.2500, L501.4020, L100.0100, L505.5000 #### [facility] [address] [place], [address] GAP 7 Normal 5-15 [facility] Comment on above: Order Comment: 'TROP ' Serial specimen #1, #2 or #3: 1 Performed By: #### L 500.2500, L501.4020, L100.0100, L505.5000 #### [facility] [address] [place], [address] GFR/1.73 sq M.predicted among non-blacks MDRD (S/P/Bld) [Vol rate/Area] 80 mL/min/{1.73_m2} Normal >60 [facility] Comment on above: Order Comment: 'TROP ' Serial specimen #1, #2 or #3: 1 Result Comment: Non- GFR Calc Performed By: #### L 500.2500, L501.4020, L100.0100, L505.5000 #### [facility] [address] [place], [address] Glucose [Mass/Vol] 134 mg/dL High 74-106 [facility] Comment on above: Order Comment: 'TROP ' Serial specimen #1, #2 or #3: 1 Result Comment: Fast ing Glucose result greater than or equal to 126 mg/dL suggests DIABETES MELLITUS per A.D.A. criteria. Performed By: #### L 500.2500, L501.4020, L100.0100, L505.5000 #### [facility] [address] [place], [address] Potassium [Moles/Vol] 3.3 mmol/L Low 3.5-5.1 [facility] Comment on above: Order Comment: 'TROP ' Serial specimen #1, #2 or #3: 1 Performed By: #### L 500.2500, L501.4020, L100.0100, L505.5000 #### [facility] [address] [place], [address] Sodium [Moles/Vol] 136 mmol/L Normal 136-145 [facility] Comment on above: Order Comment: 'TROP ' Serial specimen #1, #2 or #3: 1 Performed By: #### L 500.2500, L501.4020, L100.0100, L505.5000 #### [facility] [address] [place], [address] Urea nitrogen [Mass/Vol] 14 mg/dL Normal 7-18 [facility] Comment on above: Order Comment: 'TROP ' Serial specimen #1, #2 or #3: 1 Performed By: #### L 500.2500, L501.4020, L100.0100, L505.5000 #### [facility] [address] [place], [address] Basophil percentageOrdered B y: Zhang Bridges on 10-09-2023 Basophils/100 WBC (Bld) 0.5 % 0-1 [facility] Chloride [Moles/Vol] 100 mmol/L 98-107 [facility] Eosinophils/100 WBC (Bld) 1.3 % 0-5 [facility] Glucose [Mass/Vol] 134 mg/dL 74-106 [facility] Comment on above: Fasting Glucose resu lt greater than or equal to 126 mg/dL suggests DIABETES MELLITUS per A.D.A. criteria. Hemoglobin (Bld) [Mass/Vol] 14.0 g/dL 12.0-15.0 [facility] Monocytes/100 WBC (Bld) 7.8 % 0-10 [facility] Neutrophils (Bld) [#/Vol] 7.9 10*3/uL 2.0-7.7 [facility] Neutrophils/100 WBC (Bld) 77.8 % 47-70 [facility] Potassium [Moles/Vol] 3.3 mmol/L 3.5-5.1 [facility] Sodium [Moles/Vol] 136 mmol/L 136-145 [facility] WBC (Bld) [#/Vol] 10.1 10*3/uL 4.4-11.0 [facility] Brain/Head without Contrasto n 10-09-2023 Brain/Head without Contrast [facility] Imaging Services [address] [place] [address] Brain/Head without Contrast MR#: [id number] Acct: [id number] Name: LAURIE HERNÁNDEZ Rep #: [id number] : 1945 F 77 From: Jovany mendoza MD PCP: Dr. Gurinder Kothari MD Status: [facility] ER Study: Brain/Head without Contrast Date of Exam: 09/11 03/05 Exam# [id number] Ordering Dr: Zhang Bridges DO [id number] STUDY: CT BRAIN WITHOUT CONTRAST REASON FOR EXAM: Female, 77 years old. Change in Mental Status RADIATION DOSAGE (If Supplied By Facility): CTDIvol = ( 44.99 ) mGy, DLP = ( 762.36 ) mGycm TECHNIQUE: Transaxial CT imaging of the brain was performed without administration of intravenous contrast material. Individualized dose optimization techniques were used for this CT. COMPARISON: No relevant priors. FINDINGS: Normal soft tissue structures. There is hyperostosis frontalis internus. There is mild cerebral atrophy with widening of the extra-axial spaces and ventricular dilatation. Normal white matter tracts of the cerebral hemispheres. Normal basal ganglia and thalami. Normal brainstem. Normal cerebellum. There is no intracranial hemorrhage. There are no findings of an acute ischemic infarction. Normal visualized paranasal sinuses. CT/Brain/Head without Contrast IMPRESSION: Chronic involutional changes of the brain. Electronically Signed: Jovany Tierney MD at 13:19 EDT Reading Location ID and State: [address] [place] [address] , Service support , CC: Dr. Gurinder Kothari MD; Dr. Zhang Bridges DO Ore Sampler: Signed Normal [facility] CBC W/Diff, Automatedon - Absolute Lymph 1.25 X10 3/uL Normal 0.83-4.51 [facility] Comment on above: Performed By: #### L 500.2500, L501.4020, L100.0100, L505.5000 #### [facility] [address] [place], [place], [address] Absolute Neut 7.9 X10 3/uL High 2.0-7.7 [facility] Comment on above: Performed By: #### L 500.2500, L501.4020, L100.0100, L505.5000 #### [facility] [address] [place], [address] Basophils/100 WBC (Bld) 0.5 % Normal 0-1 [facility] Comment on above: Performed By: #### L 500.2500, L501.4020, L100.0100, L505.5000 #### [facility] [address] [place], [address] Eosinophils/100 WBC (Bld) 1.3 % Normal 0-5 [facility] Comment on above: Performed By: #### L 500.2500, L501.4020, L100.0100, L505.5000 #### [facility] [address] [place], [address] Erythrocyte distribution width (RBC) [Ratio] 12.9 % Normal 11.6-14.6 [facility] Comment on above: Performed By: #### L 500.2500, L501.4020, L100.0100, L505.5000 #### [facility] [address] [place], [address] Hematocrit (Bld) [Volume fraction] 41.1 % Normal 37-47 [facility] Comment on above: Performed By: #### L 500.2500, L501.4020, L100.0100, L505.5000 #### [facility] [address] [place], [address] Hemoglobin (Bld) [Mass/Vol] 14.0 g/dL Normal 12.0-15.0 [facility] Comment on above: Performed By: #### L 500.2500, L501.4020, L100.0100, L505.5000 #### [facility] [address] [place], [address] IG% 0.300 Normal 0.0-0.9 [facility] Comment on above: Result Comment: IG% - Immature Granulocytes (promyelocytes, myelocytes and metamyelocytes) > 1% indicates that a LEFT SHIFT is Present. Performed By: #### L 500.2500, L501.4020, L100.0100, L505.5000 #### [facility] [address] [place], [address] Lymphocytes/100 WBC (Bld) 12.3 % Low 19-41 [facility] Comment on above: Performed By: #### L 500.2500, L501.4020, L100.0100, L505.5000 #### [facility] [address] [place], [address] MCH (RBC) [Entitic mass] 29.7 pg Normal 27.0-32.0 [facility] Comment on above: Performed By: #### L 500.2500, L501.4020, L100.0100, L505.5000 #### [facility] [address] [place], [address] MCHC (RBC) [Mass/Vol] 34.1 g/dL Normal 32-36 [facility] Comment on above: Performed By: #### L 500.2500, L501.4020, L100.0100, L505.5000 #### [facility] [address] [place], [address] MCV (RBC) [Entitic vol] 87.1 fL Normal 81-99 [facility] Comment on above: Performed By: #### L 500.2500, L501.4020, L100.0100, L505.5000 #### [facility] [address] [place], [address] Monocytes/100 WBC (Bld) 7.8 % Normal 0-10 [facility] Comment on above: Performed By: #### L 500.2500, L501.4020, L100.0100, L505.5000 #### [facility] [address] [place], [address] Neutrophils/100 WBC (Bld) 77.8 % High 47-70 [facility] Comment on above: Performed By: #### L 500.2500, L501.4020, L100.0100, L505.5000 #### [facility] [address] [place], [address] Nucleated RBC (Bld) [#/Vol] 0 10*3/uL Normal 0-5 [facility] Comment on above: Performed By: #### L 500.2500, L501.4020, L100.0100, L505.5000 #### [facility] [address] [place], [address] Platelet mean volume (Bld) [Entitic vol] 10.4 fL Normal 6.2-12.0 [facility] Comment on above: Performed By: #### L 500.2500, L501.4020, L100.0100, L505.5000 #### [facility] [address] [place], [address] Platelets (Bld) [#/Vol] 258 10*3/uL Normal 150-450 [facility] Comment on above: Performed By: #### L 500.2500, L501.4020, L100.0100, L505.5000 #### [facility] [address] [place], [address] RBC (Bld) [#/Vol] 4.72 10*6/uL Normal 4.2-5.4 [facility] Comment on above: Performed By: #### L 500.2500, L501.4020, L100.0100, L505.5000 #### [facility] [address] [place], [address] RDW SD 41.6 fl Normal 35.1-43.9 [facility] Comment on above: Performed By: #### L 500.2500, L501.4020, L100.0100, L505.5000 #### [facility] [address] [place], [address] WBC (Bld) [#/Vol] 10.1 10*3/uL Normal 4.4-11.0 [facility] Comment on above: Performed By: #### L 500.2500, L501.4020, L100.0100, L505.5000 #### [facility] [address] [place], [address] Chest 1 View (Portable)on Chest 1 View (Portable) [facility] Imaging Services [address] [place] [address] Chest 1 View (Portable) MR#: [id number] Acct: [id number] Name: LAURIE HERNÁNDEZ Rep #: [id number] : 1945 F 77 From: Jovany mendoza MD PCP: Dr. Gurinder Kothari MD Status: [facility] Study: Chest 1 View (Portable) Date of Exam: 10/09/23 Exam# [id number] Ordering Dr: Zhang Bridges DO [id number] STUDY: X-RAY CHEST REASON FOR EXAM: Female, 77 years old. Dizziness TECHNIQUE: Single AP portable view of the chest. COMPARISON: Comparison is made with prior examination dated 2022. FINDINGS: EKG electrodes are seen. The lungs are clear and expanded. There is no demonstrated pleural abnormality. Normal size heart. Normal mediastinum and gaston. Normal visualized pulmonary arteries. There is atherosclerotic calcification of the aortic arch with tortuosity. There are degenerative changes of the visualized thoracic spine. Normal visualized ribs, clavicles, and shoulders. There is no demonstrated abnormality of the visualized soft tissue structures of the upper abdomen. RAD/Chest 1 View (Portable) IMPRESSION: No acute abnormality is seen. Electronically Signed: Jovany Tierney MD at 12:48 EDT , CC: Dr. Gurinder Kothari MD; Dr. Zhang Bridges DO Ore Sampler: Signed Normal [facility] Determination of erythrocyte mean corpuscular volume (MCV)Ordered By: Zhang Bridges on 10-09-2023 MCV (RBC) [Entitic vol] 87.1 fL 81-99 [facility] Emergency Department Summary on 10-09-2023 Emergency Department Summary [facility] Medical Records Department [address] [place] [id number] Emergency Department Summary 10/09/23 MR#: [id number] Acct: [id number] Name: LAURIE HERNÁNDEZ Rep #: [id number] : 1945 77 From: Zhang Bridges DO PCP: Dr. Gurinder Kothari MD Status:DEP ER Location: ED HPI History of Present Illness Chief Complaint: Dizziness [facility] Medical History (Updated 06/21/22 @ 14:48 by Bisi Wahl) High cholesterol Home Medications diazepam 2 mg tablet (Valium) 2 mg PO BID PRN dizziness or vertigo #10 tabs 06/21/22 [Rx Last Taken Unknown] meclizine 25 mg tablet 25 mg PO TID PRN dizziness #30 tabs 06/21/22 [Rx Last Taken Unknown] potassium chloride 20 mEq tablet,extended release 20 meq PO DAILY #30 tabs 06/21/22 [Rx Last Taken Unknown] promethazine 25 mg tablet 25 mg PO TID PRN dizziness or vertigo #30 tabs 06/21/22 [Rx Last Taken Unknown] diazepam 2 mg tablet (Valium) 2 mg PO BID PRN dizziness or vertigo #14 tabs 10/09/23 [Rx Last Taken Unknown] Allergy/AdvReac Type Severity Reaction Status Date / Time No Known Allergies Allergy Verified 10/09/23 10:59 Social History Smoking Status: Unknown if ever smoked EXAM Physical Exam Const Vital Signs: 10/09/23 11:00 10/09/23 11:16 10/09/23 12:59 Temperature 97.1 F L Temperature Source Temporal Pulse Rate 70 78 Respiratory Rate 14 13 Respiratory Effort Normal Non-Labored Respiratory Pattern Normal Blood Pressure 145/73 H 132/52 H Blood Pressure Mean 97 78 Pulse Ox 97 97 Oxygen Delivery Method Room Air Room Air 10/09/23 14:00 10/09/23 14:34 Temperature 98 F Temperature Source Pulse Rate 60 62 Respiratory Rate 17 16 Respiratory Effort Respiratory Pattern Blood Pressure 112/71 112/71 Blood Pressure Mean 84 84 Pulse Ox 92 90 Oxygen Delivery Method Room Air MDM MDM MDM Narrative Medical decision making narrative: HISTORY OF PRESENT ILLNESS: 77-year-old female presents with dizziness, notes is been intermittent since Monday. Now she is taking meclizine without relief. She further states she is more dizzy today than usual. She noted some issues with her balance. Notes this has since resolved. REVIEW OF SYSTEMS: Pertinent positives: Dizziness Pertinent negatives: Headache, chest pain, shortness of breath, palpitations PHYSICAL EXAM: Nursing triage notes reviewed, Vital signs reviewed Constitutional: please see mdm HENT: MMM Eyes: Pupils equal round and reactive to light, Extraocular muscles intact Neck: No stridor, no JVD, full neck ROM Lungs: Clear to auscultation, No wheezing or rales. No increased work of breathing, no conversational dyspnea, no accessory muscle use, no nasal flaring. No respiratory distress noted Heart: Regular rate and rhythm, No murmurs, No rubs and No gallops, 2+ distal pulses (radial, femoral, posterior tibial) in all extremities Abdomen: Soft, there is no tenderness, rigidity, rebound or guarding, no obvious peritoneal signs, no palpable pulsatile abdominal masses, no auscultated abdominal bruit : No CVAT Extremities: No edema Neuro: Alert and oriented x3, neuro exam at baseline, cranial nerves II through XII are intact. No pain with extraocular muscle movement. There is negative test of skew. 5 of 5 strength in upper and lower extremities in flexion extension. Intact sensation to light touch in upper and lower extremity dermatomes. No truncal or extremity ataxia. No dysdiadochokinesia. Normal gait. 2+ reflexes in upper and lower extremities. No meningeal signs. Negative Babinski. NIH of 0. Skin: No rash or lesions noted MEDICAL DECISION MAKING: Chief Complaint: Dizziness External records reviewed: Prior imaging reviewed:Chronic microvascular ischemic changes. No evidence of acute intracranial pathology. Partially empty sella turcica is nonspecific. Factors affecting care: vertigo Social determinants of health: none History obtained from others: none Consults: none [facility] Narrative: Patient was hemodynamically stable afebrile nontoxic-appearing. Initial neurologic exam revealed no focal deficits I considered the following differential diagnosis: Posterior circulation CVA, BPPV, ICH, arrhythmia, anemia, electrolyte disturbance, ACS I obtained a broad lab and imaging workup to further elucidate the etiology of the patient's ALL IMAGES (IF OBTAINED) HAVE BEEN PERSONALLY REVIEWED AND INTERPRETED BY MYSELF. EKG with normal sinus rhythm, left axis deviation, normals, no STEMI CBC without leukocytosis, severe anemia, no thrombocytopenia. BMP with mild hypokalemia, no significant electrolyte disturbance otherwise, no PORSCHE, no metabolic acidosis High-sensitivity troponin is negative (more content not included)... Normal [facility] Erythrocyte distribution wid th ratioOrdered By: Zhang Bridges on 10-09-2023 Erythrocyte distribution width (RBC) [Ratio] 12.9 % 11.6-14.6 [facility] Erythrocyte distribution wid th standard deviationOrdered By: Zhang Bridges on 10-09-2023 Erythrocyte distribution width (RBC) [Entitic vol] 41.6 fL 35.1-43.9 [facility] Hematocrit Auto (Bld) [Volum e fraction]Ordered By: Zhang Bridges on 10-09-2023 Hematocrit (Bld) [Volume fraction] 41.1 % 37-47 [facility] Immature granulocytes/100 WB C Auto (Bld)Ordered By: Zhang Bridges on 10-09-2023 Immature granulocytes/100 WBC (Bld) 0.300 % 0.0-0.9 [facility] Comment on above: IG% - Immature Granu locytes (promyelocytes, myelocytes and metamyelocytes) > 1% indicates that a LEFT SHIFT is Present. L501.4020on 10-09-2023 TROPONIN-I HS 5 pg/mL Normal 3.0-54.0 [facility] Comment on above: Order Comment: 'TROP ' Serial specimen #1, #2 or #3: 1 Result Comment: Kathia tierney Note: New Test Units and Gender Specific Reference Ranges. For more information see Policy Stat Procedure [facility] High Sensitivity Troponin (TNIH) and attachments. Performed By: #### L 500.2500, L501.4020, L100.0100, L505.5000 #### [facility] [address] [place], [address] Laboratory - Chemistry and C hemistry - challengeOrdered By: Zhang Bridges on 10-09-2023 CO2 [Moles/Vol] 29.0 mmol/L 21.0-32.0 [facility] Urea nitrogen/Creatinine [Mass ratio] 18.7 mg/mg 10-20 [facility] - Hematology and Cell countsOrdered By: Zhang Bridges on 10-09-2023 MCH (RBC) [Entitic mass] 29.7 pg 27.0-32.0 [facility] MCHC (RBC) [Mass/Vol] 34.1 g/dL 32-36 [facility] Nucleated RBC/100 WBC (Bld) [Ratio] 0 % 0-5 [facility] Platelet mean volume (Bld) [Entitic vol] 10.4 fL 6.2-12.0 [facility] Platelets (Bld) [#/Vol] 258 10*3/uL 150-450 [facility] No Panel InformationOrdered By: Zhang Bridges on 10-09-2023 Estimated GFR (MDRD) Amer 96 mL/min >60 [facility] Comment on above: GFR Calc Estimated GFR (MDRD) Non-Af Amer 80 mL/min >60 [facility] Comment on above: Non- GFR Calc Troponin I High Sensitivity 5 pg/mL 3.0-54.0 [facility] Comment on above: Please Note: New Rosalind t Units and Gender Specific Reference Ranges. For more information see Policy Stat Procedure [facility] High Sensitivity Troponin (TNIH) and attachments. RBC Auto (Bld) [#/Vol]Ordere d By: Zhang Bridges on 10-09-2023 RBC (Bld) [#/Vol] 4.72 10*6/uL 4.2-5.4 [facility] Serum or plasma calcium emily urement (mass/volume)Ordered By: Zhang Bridges on 10-09-2023 Calcium [Mass/Vol] 9.4 mg/dL 8.5-10.1 [facility] Serum or plasma creatinine m easurement (mass/volume)Ordered By: Zhang Bridges on 10-09-2023 Creatinine [Mass/Vol] 0.75 mg/dL 0.55-1.02 [facility] Comment on above: The validity of the calculated GFR & GFRAA in patients over 70 years has not been determined. Clinical correlation is essential. Serum or plasma urea nitroge n measurement (mass/volume)Ordered By: Zhang Bridges on 10-09-2023 Urea nitrogen [Mass/Vol] 14 mg/dL 7-18 [facility] Thin prep Papanicolaou smear with manual screeningOrdered By: Zhang Bridges on 10-09-2023 Thin prep Papanicolaou smear with manual screening 7 5-15 [facility] Urine Drug Screen (VISTA)on 10-09-2023 AMPHETAMINES Normal <1000 ng/mL [facility] Comment on above: Result Comment: Canc elled via OM: Ordered Performed By: #### L 500.2500, L501.4020, L100.0100, L505.5000 #### [facility] [address] [place], [place], [id number] (233) BARBITIURATES Normal < 200 ng/mL [facility] Comment on above: Result Comment: Canc elled via OM: MD Ordered Performed By: #### L 500.2500, L501.4020, L100.0100, L505.5000 #### [facility] [address] [place], [address] BENZODIAZIPINE Normal < 200 ng/mL [facility] Comment on above: Result Comment: Canc elled via OM: MD Ordered Performed By: #### L 500.2500, L501.4020, L100.0100, L505.5000 #### [facility] [address] [place], [address] COCAINE Normal < 300 ng/mL [facility] Comment on above: Result Comment: Canc elled via OM: MD Ordered Performed By: #### L 500.2500, L501.4020, L100.0100, L505.5000 #### [facility] [address] [place], [address] DRUG CONFIRM Normal [facility] Comment on above: Result Comment: Canc elled via OM: MD Ordered Performed By: #### L 500.2500, L501.4020, L100.0100, L505.5000 #### [facility] [address] [place], [address] ECSTACY Normal < 500 ng/mL [facility] Comment on above: Result Comment: Canc elled via OM: MD Ordered Performed By: #### L 500.2500, L501.4020, L100.0100, L505.5000 #### [facility] [address] [place], [address] METHADONE Normal < 300 ng/mL [facility] Comment on above: Result Comment: Canc elled via OM: MD Ordered Performed By: #### L 500.2500, L501.4020, L100.0100, L505.5000 #### [facility] [address] [place], [address] OPIATES Normal < 300 ng/mL [facility] Comment on above: Result Comment: Canc elled via OM: MD Ordered Performed By: #### L 500.2500, L501.4020, L100.0100, L505.5000 #### [facility] [address] [place], [address] PCP Normal < 25 ng/mL [facility] Comment on above: Result Comment: Canc elled via OM: MD Ordered Performed By: #### L 500.2500, L501.4020, L100.0100, L505.5000 #### [facility] [address] [place], [address] THC Normal < 50 ng/mL [facility] Comment on above: Result Comment: Canc elled via OM: MD Ordered Performed By: #### L 500.2500, L501.4020, L100.0100, L505.5000 #### [facility] [address] [place], [address] VISTA UDS PH Normal [facility] Comment on above: Result Comment: Canc elled via OM: MD Ordered Performed By: #### L 500.2500, L501.4020, L100.0100, L505.5000 #### [facility] [address] [place], [address] Absolute lymphocyte countOrd ered By: Dr. Luna on 06-21-2022 Lymphocytes Auto (Unsp spec) [#/Vol] 1.42 10*3/uL 0.83-4.51 [facility] Basophil percentageOrdered B y: Dr. Luna on 06-21-2022 Basophil percentage 5-10 SEEN /hpf 0-5 [facility] Basophils/100 WBC (Bld) 0.6 % 0-1 [facility] Chloride [Moles/Vol] 98 mmol/L 98-107 [facility] Eosinophils/100 WBC (Bld) 1.8 % 0-5 [facility] Glucose [Mass/Vol] 107 mg/dL 74-106 [facility] Comment on above: Fasting Glucose resu lt from 100 to 125 mg/dL suggests IMPAIRED HOMEOSTASIS per A.D.A. criteria. Neutrophils (Bld) [#/Vol] 7.3 10*3/uL 2.0-7.7 [facility] Neutrophils/100 WBC (Bld) 73.8 % 47-70 [facility] Potassium [Moles/Vol] 3.0 mmol/L 3.5-5.1 [facility] Sodium [Moles/Vol] 139 mmol/L 136-145 [facility] WBC (Bld) [#/Vol] 9.8 10*3/uL 4.4-11.0 [facility] Bilirubin Test strip Ql (U)O rdered By: Dr. Luna on 06-21-2022 Bilirubin Ql (U) Negative Negative [facility] Blood erythrocytes count (nu mber/volume)Ordered By: Dr. Luna on 06-21-2022 RBC (Bld) [#/Vol] 4.85 10*6/uL 4.2-5.4 [facility] Blood hemoglobin measurement (mass/volume)Ordered By: Dr. Luna on 06-21-2022 Hemoglobin (Bld) [Mass/Vol] 14.3 g/dL 12.0-15.0 [facility] Blood lymphocytes/100 leukoc ytesOrdered By: Dr. Luna on 06-21-2022 Lymphocytes/100 WBC (Bld) 14.4 % 19-41 [facility] Blood monocytes/100 leukocyt esOrdered By: Dr. Luna on 06-21-2022 Monocytes/100 WBC (Bld) 9.1 % 0-10 [facility] Blood platelet mean volumeOr dered By: Dr. Luna on 06-21-2022 Platelet mean volume (Bld) [Entitic vol] 10.6 fL 6.2-12.0 [facility] Determination of erythrocyte mean corpuscular volume (MCV)Ordered By: Dr. Luna on 06-21-2022 MCV (RBC) [Entitic vol] 89.7 fL 81-99 [facility] Hematocrit Auto (Bld) [Volum e fraction]Ordered By: Dr. Luna on 06-21-2022 Hematocrit (Bld) [Volume fraction] 43.5 % 37-47 [facility] Ketones Test strip Ql (U)Ord ered By: Dr. Luna on 06-21-2022 Ketones Ql (U) Negative Negative [facility] Laboratory - Chemistry and C hemistry - challengeOrdered By: Dr. Luna on 06-21-2022 CO2 [Moles/Vol] 32.0 mmol/L 21.0-32.0 [facility] Magnesium [Mass/Vol] 2.2 mg/dL 1.6-2.6 [facility] Urea nitrogen/Creatinine [Mass ratio] 16.2 mg/mg 10-20 [facility] - Hematology and Cell countsOrdered By: Dr. Luna on 06-21-2022 Erythrocyte distribution width (RBC) [Entitic vol] 43.7 fL 35.1-43.9 [facility] Erythrocyte distribution width (RBC) [Ratio] 13.3 % 11.6-14.6 [facility] Immature granulocytes/100 WBC (Bld) 0.300 % 0.0-0.9 [facility] Comment on above: IG% - Immature Granu locytes (promyelocytes, myelocytes and metamyelocytes) > 1% indicates that a LEFT SHIFT is Present. MCH (RBC) [Entitic mass] 29.5 pg 27.0-32.0 [facility] Nucleated RBC/100 WBC (Bld) [Ratio] 0 % 0-5 [facility] MCHC Auto (RBC) [Mass/Vol]Or dered By: Dr. Luna on 06-21-2022 MCHC (RBC) [Mass/Vol] 32.9 g/dL 32-36 [facility] Mucus LM Ql (Urine sed)Order ed By: Dr. Luna on 06-21-2022 Mucus Ql (Urine sed) 0 SEEN /hpf [facility] Nitrite Test strip Ql (U)Ord ered By: Dr. Luna on 06-21-2022 Nitrite Ql (U) Negative Negative [facility] No Panel InformationOrdered By: Dr. Luna on 06-21-2022 Estimated Creatinine Clearance Calc 44.44 ml/min [facility] Estimated GFR (MDRD) Amer 89 mL/min >60 [facility] Comment on above: GFR Calc Estimated GFR (MDRD) Non-Af Amer 74 mL/min >60 [facility] Comment on above: Non- GFR Calc Troponin I High Sensitivity 6 pg/mL 3.0-54.0 [facility] Comment on above: Please Note: New Rosalind t Units and Gender Specific Reference Ranges. For more information see Policy Stat Procedure [facility] High Sensitivity Troponin (TNIH) and attachments. Platelets bldOrdered By: Dr. Luna on 06-21-2022 Platelets (Bld) [#/Vol] 261 10*3/uL 150-450 [facility] Protein Test strip Ql (U)Ord ered By: Dr. Luna on 06-21-2022 Protein Ql (U) Negative Negative [facility] Serum or plasma calcium emily urement (mass/volume)Ordered By: Dr. Luna on 06-21-2022 Calcium [Mass/Vol] 9.5 mg/dL 8.5-10.1 [facility] Serum or plasma creatinine m easurement (mass/volume)Ordered By: Dr. Luna on 06-21-2022 Creatinine [Mass/Vol] 0.80 mg/dL 0.55-1.02 [facility] Comment on above: The validity of the calculated GFR & GFRAA in patients over 70 years has not been determined. Clinical correlation is essential. Serum or plasma urea nitroge n measurement (mass/volume)Ordered By: Dr. Luna on 06-21-2022 Urea nitrogen [Mass/Vol] 13 mg/dL 7-18 [facility] Squamous epithelial cells de tection in urine sediment by light microscopyOrdered By: Dr. Luna on 06-21-2022 Epithelial cells.squamous LM Ql (Urine sed) 0-5 SEEN /hpf 5-10 [facility] Thin prep Papanicolaou smear with manual screeningOrdered By: Dr. Luna on 06-21-2022 Thin prep Papanicolaou smear with manual screening 9 5-15 [facility] Urine blood detectionOrdered By: Dr. Luna on 06-21-2022 RBC Ql (U) Negative Negative [facility] RBC Ql (U) 0 SEEN /hpf 0-5 [facility] Urine clarityOrdered By: Dr. Luna on 06-21-2022 Clarity (U) Clear Clear [facility] Urine color determinationOrd ered By: Dr. Luna on 06-21-2022 Color (U) Yellow Yellow [facility] Urine glucose detectionOrder ed By: Dr. Luna on 06-21-2022 Glucose Ql (U) Normal mg/dl Normal [facility] Urine leukocyte esterase det ection by dipstickOrdered By: Dr. Luna on 06-21-2022 Leukocyte esterase Test strip Ql (U) 500 /ul Negative [facility] Urine pHOrdered By: Dr. Virgilio mclaughlin on 06-21-2022 pH (U) 7.0 [pH] 5.0 - 8.0 [facility] Urine sediment bacteria coun t by microscopy (number/high power field)Ordered By: Dr. Luna on 06-21-2022 Bacteria LM.HPF (Urine sed) [#/Area] 1 /[HPF] None Seen [facility] Urine specific gravity measu rementOrdered By: Dr. Luna on 06-21-2022 Specific gravity (U) [Rel density] 1.010 1.002-1.030 [facility] Urobilinogen Auto test strip Ql (U)Ordered By: Dr. Luna on 06-21-2022 Urobilinogen Ql (U) Normal mg/dl Normal [facility] Basophil percentageOrdered B y: Dr. Alvarez on 05-02-2022 Bilirubin [Mass/Vol] 0.60 mg/dL 0.20-1.00 [facility] Comment on above: For patients on eltr ombopag therapy, use of Dimension [place]edar TBIL is not recommended. Chloride [Moles/Vol] 102 mmol/L 98-107 [facility] Glucose [Mass/Vol] 105 mg/dL 74-106 [facility] Comment on above: Fasting Glucose resu lt from 100 to 125 mg/dL suggests IMPAIRED HOMEOSTASIS per A.D.A. criteria. Potassium [Moles/Vol] 3.9 mmol/L 3.5-5.1 [facility] Protein [Mass/Vol] 7.3 g/dL 6.4-8.2 [facility] Sodium [Moles/Vol] 138 mmol/L 136-145 [facility] WBC (Bld) [#/Vol] 7.7 10*3/uL 4.4-11.0 [facility] Blood erythrocytes count (nu mber/volume)Ordered By: Dr. Alvarez on 05-02-2022 RBC (Bld) [#/Vol] 4.77 10*6/uL 4.2-5.4 [facility] Blood hemoglobin measurement (mass/volume)Ordered By: Dr. Alvarez on 05-02-2022 Hemoglobin (Bld) [Mass/Vol] 14.4 g/dL 12.0-15.0 [facility] Blood platelet mean volumeOr dered By: Dr. Alvarez on 05-02-2022 Platelet mean volume (Bld) [Entitic vol] 10.5 fL 6.2-12.0 [facility] Determination of erythrocyte mean corpuscular volume (MCV)Ordered By: Dr. Alvarez on 05-02-2022 MCV (RBC) [Entitic vol] 90.6 fL 81-99 [facility] Hematocrit Auto (Bld) [Volum e fraction]Ordered By: Dr. Alvarez on 05-02-2022 Hematocrit (Bld) [Volume fraction] 43.2 % 37-47 [facility] Laboratory - Chemistry and C hemistry - challengeOrdered By: Dr. Alvarez on 05-02-2022 ALP [Catalytic activity/Vol] 75 U/L 45-117 [facility] ALT [Catalytic activity/Vol] 18 U/L 13-56 [facility] CO2 [Moles/Vol] 31.0 mmol/L 21.0-32.0 [facility] Globulin (S) [Mass/Vol] 4.0 g/dL 2.2-4.2 [facility] Urea nitrogen/Creatinine [Mass ratio] 15.5 mg/mg 10-20 [facility] Laboratory - Hematology and Cell countsOrdered By: Dr. Alvarez on 05-02-2022 Erythrocyte distribution width (RBC) [Entitic vol] 45.6 fL 35.1-43.9 [facility] Erythrocyte distribution width (RBC) [Ratio] 13.5 % 11.6-14.6 [facility] MCH (RBC) [Entitic mass] 30.2 pg 27.0-32.0 [facility] MCHC Auto (RBC) [Mass/Vol]Or dered By: Dr. Alvarez on 05-02-2022 MCHC (RBC) [Mass/Vol] 33.3 g/dL 32-36 [facility] No Panel InformationOrdered By: Dr. Alvarez on 05-02-2022 Estimated GFR (MDRD) Amer 103 mL/min >60 [facility] Comment on above: GFR Calc Estimated GFR (MDRD) Non-Af Amer 85 mL/min >60 [facility] Comment on above: Non- GFR Calc Platelets bldOrdered By: Dr. Alvarez on 05-02-2022 Platelets (Bld) [#/Vol] 226 10*3/uL 150-450 [facility] Serum or plasma albumin emily urement (mass/volume)Ordered By: Dr. Alvarez on 05-02-2022 Albumin [Mass/Vol] 3.3 g/dL 3.2-5.0 [facility] Serum or plasma albumin/glob ulin mass ratioOrdered By: Dr. Alvarez on 05-02-2022 Albumin/Globulin [Mass ratio] 0.8 {ratio} 0.9-2.4 [facility] Serum or plasma calcium emily urement (mass/volume)Ordered By: Dr. Alvarez on 05-02-2022 Calcium [Mass/Vol] 9.5 mg/dL 8.5-10.1 [facility] Serum or plasma creatinine m easurement (mass/volume)Ordered By: Dr. Alvarez on 05-02-2022 Creatinine [Mass/Vol] 0.71 mg/dL 0.55-1.02 [facility] Comment on above: The validity of the calculated GFR & GFRAA in patients over 70 years has not been determined. Clinical correlation is essential. Serum or plasma urea nitroge n measurement (mass/volume)Ordered By: Dr. Alvarez on 05-02-2022 Urea nitrogen [Mass/Vol] 11 mg/dL 7-18 [facility] Thin prep Papanicolaou smear with manual screeningOrdered By: Dr. Alvarez on 05-02-2022 Thin prep Papanicolaou smear with manual screening 14 U/L 15-37 [facility] Thin prep Papanicolaou smear with manual screening 5 5-15 [facility] Absolute lymphocyte counton 03-16-2022 Lymphocytes Auto (Unsp spec) [#/Vol] 1.06 10*3/uL 0.83-4.51 [facility] Work Phone: Basophil percentageon 2021 Basophils/100 WBC (Bld) 0.4 % 0-1 [facility] Work Phone: Bilirubin [Mass/Vol] 0.60 mg/dL 0.20-1.00 [facility] Work Phone: Comment on above: For patients on eltr ombopag therapy, use of Dimension [place]edar TBIL is not recommended. Chloride [Moles/Vol] 98 mmol/L 98-107 [facility] Work Phone: Eosinophils/100 WBC (Bld) 1.6 % 0-5 [facility] Work Phone: Glucose [Mass/Vol] 114 mg/dL 74-106 [facility] Work Phone: Comment on above: Fasting Glucose resu lt from 100 to 125 mg/dL suggests IMPAIRED HOMEOSTASIS per A.D.A. criteria. Neutrophils (Bld) [#/Vol] 5.7 10*3/uL 2.0-7.7 [facility] Work Phone: Neutrophils/100 WBC (Bld) 74.2 % 47-70 [facility] Work Phone: Potassium [Moles/Vol] 3.6 mmol/L 3.5-5.1 [facility] Work Phone: Protein [Mass/Vol] 7.5 g/dL 6.4-8.2 [facility] Work Phone: Sodium [Moles/Vol] 136 mmol/L 136-145 [facility] Work Phone: WBC (Bld) [#/Vol] 7.7 10*3/uL 4.4-11.0 [facility] Work Phone: Bilirubin Test strip Ql (U)o n 03-16-2022 Bilirubin Ql (U) Negative Negative [facility] Work Phone: Blood erythrocytes count (nu mber/volume)on 03-16-2022 RBC (Bld) [#/Vol] 4.51 10*6/uL 4.2-5.4 [facility] Work Phone: Blood hemoglobin measurement (mass/volume)on 03-16-2022 Hemoglobin (Bld) [Mass/Vol] 13.3 g/dL 12.0-15.0 [facility] Work Phone: Blood lymphocytes/100 leukoc yteson 03-16-2022 Lymphocytes/100 WBC (Bld) 13.9 % 19-41 [facility] Work Phone: Blood monocytes/100 leukocyt eson 03-16-2022 Monocytes/100 WBC (Bld) 9.2 % 0-10 [facility] Work Phone: Blood platelet mean volumeon 03-16-2022 Platelet mean volume (Bld) [Entitic vol] 10.6 fL 6.2-12.0 [facility] Work Phone: Determination of erythrocyte mean corpuscular volume (MCV)on 03-16-2022 MCV (RBC) [Entitic vol] 90.5 fL 81-99 [facility] Work Phone: Hematocrit Auto (Bld) [Volum e fraction]on 03-16-2022 Hematocrit (Bld) [Volume fraction] 40.8 % 37-47 [facility] Work Phone: Ketones Test strip Ql (U)on 03-16-2022 Ketones Ql (U) Negative Negative [facility] Work Phone: Laboratory - Chemistry and C hemistry - challengeon 03-16-2022 ALP [Catalytic activity/Vol] 71 U/L 45-117 [facility] Work Phone: ALT [Catalytic activity/Vol] 19 U/L 13-56 [facility] Work Phone: CO2 [Moles/Vol] 31.0 mmol/L 21.0-32.0 [facility] Work Phone: Globulin (S) [Mass/Vol] 4.4 g/dL 2.2-4.2 [facility] Work Phone: Urea nitrogen/Creatinine [Mass ratio] 11.5 mg/mg 10-20 [facility] Work Phone: Laboratory - Hematology and Cell countson 03-16-2022 Erythrocyte distribution width (RBC) [Entitic vol] 43.2 fL 35.1-43.9 [facility] Work Phone: Erythrocyte distribution width (RBC) [Ratio] 13.1 % 11.6-14.6 [facility] Work Phone: Immature granulocytes/100 WBC (Bld) 0.700 % 0.0-0.9 [facility] Work Phone: Comment on above: IG% - Immature Granu locytes (promyelocytes, myelocytes and metamyelocytes) > 1% indicates that a LEFT SHIFT is Present. MCH (RBC) [Entitic mass] 29.5 pg 27.0-32.0 [facility] Work Phone: Nucleated RBC/100 WBC (Bld) [Ratio] 0 % 0-5 [facility] Work Phone: MCHC Auto (RBC) [Mass/Vol]on 03-16-2022 MCHC (RBC) [Mass/Vol] 32.6 g/dL 32-36 [facility] Work Phone: Nitrite Test strip Ql (U)on 03-16-2022 Nitrite Ql (U) Negative Negative [facility] Work Phone: No Panel Informationon 03-16 Estimated GFR (MDRD) Amer 92 mL/min >60 [facility] Work Phone: Comment on above: GFR Calc Estimated GFR (MDRD) Non-Af Amer 76 mL/min >60 [facility] Work Phone: Comment on above: Non- GFR Calc Platelets bldon 03-16-2022 Platelets (Bld) [#/Vol] 291 10*3/uL 150-450 [facility] Work Phone: Protein Test strip Ql (U)on 03-16-2022 Protein Ql (U) 15 mg/dl Negative [facility] Work Phone: Serum or plasma albumin emily urement (mass/volume)on 03-16-2022 Albumin [Mass/Vol] 3.1 g/dL 3.2-5.0 [facility] Work Phone: Serum or plasma albumin/glob ulin mass ratioon 03-16-2022 Albumin/Globulin [Mass ratio] 0.7 {ratio} 0.9-2.4 [facility] Work Phone: Serum or plasma calcium emily urement (mass/volume)on 03-16-2022 Calcium [Mass/Vol] 9.6 mg/dL 8.5-10.1 [facility] Work Phone: Serum or plasma creatinine m easurement (mass/volume)on 03-16-2022 Creatinine [Mass/Vol] 0.78 mg/dL 0.55-1.02 [facility] Work Phone: Comment on above: The validity of the calculated GFR & GFRAA in patients over 70 years has not been determined. Clinical correlation is essential. Serum or plasma urea nitroge n measurement (mass/volume)on 03-16-2022 Urea nitrogen [Mass/Vol] 9 mg/dL 7-18 [facility] Work Phone: Thin prep Papanicolaou smear with manual screeningon 03-16-2022 Thin prep Papanicolaou smear with manual screening 13 U/L 15-37 [facility] Work Phone: Thin prep Papanicolaou smear with manual screening 7 5-15 [facility] Work Phone: Urine blood detectionon RBC Ql (U) 10 /ul Negative [facility] Work Phone: Urine clarityon 03-16-2022 Clarity (U) Clear Clear [facility] Work Phone: Urine color determinationon 03-16-2022 Color (U) Yellow Yellow [facility] Work Phone: Urine glucose detectionon Glucose Ql (U) Normal mg/dl Normal [facility] Work Phone: Urine leukocyte esterase det ection by dipstickon 03-16-2022 Leukocyte esterase Test strip Ql (U) 500 /ul Negative [facility] Work Phone: Urine pHon 03-16-2022 pH (U) 7.0 [pH] 5.0 - 8.0 [facility] Work Phone: Urine specific gravity measu rementon 03-16-2022 Specific gravity (U) [Rel density] 1.005 1.002-1.030 [facility] Work Phone: Urobilinogen Auto test strip Ql (U)on 03-16-2022 Urobilinogen Ql (U) Normal mg/dl Normal [facility] Work Phone: Follow Up (Breast Surgery)on 09-09-2021 Follow Up (Breast Surgery) Diagnoses/Problems Assessed Abnormal mammogram of right breast (793.80) (R92.8) Patient Discussion/Summary Final follow up due in 6 months to coincide with annual mammogram. Laurie Castillo may follow up with her PCP with this. I am happy to see Laurie Castillo as needed for any additional breast concerns. Provider Impressions 1. right breast mass 10:00 6cmFN measuring 1cm, likely representing fibroglandular tissue -stable on follow up imaging Chief Complaint follow up abnormal mammogram History of Present IllnessLAURIE HERNÁNDEZ is a 75 year female who presents today at the request of Genevieve LOBATO, Gurinder Wilkerson with abnormal mammogram right breast. Called back after screening mammogram 12/11/2020 for a right breast focal asymmetry. 01/29/2021 diagnostic mammogram and U/S: 10:00 6cmFN there is a 1cm complex rounded mass seen. Axilla scanned and negative. U/S biopsy of the right breast mass recommended. patient returned for biopsy on and findings were felt to be probably benign fibroglandular tissue. 6 month follow up was recommended. 09/09/2021 follow up right mammogram and U/S: stable. Final 6 month follow up recommended. She denies any additional breast masses, skin thickening, erythema, nipple retraction or nipple discharge. Prior breast history includes: - breast biopsy: no - breast surgery:no - breast cancer:no Menarche: 12 AFLB:29 Menopause: 48 HRT: 8 years Family history: negative for breast or ovarian cancer Review of Systems Constitutional symptoms: Denies generalized fatigue. Denies weight change, fevers/chills, difficulty sleeping Eyes: Denies double vision, glaucoma, +cataracts. Ear/nose/throat/mout h: Denies hearing changes, +sore throat, +sinus problems. Cardiovascular: No chest pain. Denies irregular heartbeat. Denies ankle swelling. Respiratory: No wheezing, cough, or shortness of breath. Gastrointestinal: No abdominal pain, No nausea/vomiting. No indigestion/heartbur n. No change in bowel habits. No constipation or diarrhea. Genitourinary: No urinary incontinence. No urinary frequency. No painful urination. Musculoskeletal: No bone pain, no muscle pain, no joint pain. Integumentary: No rash. No masses. No changes in moles. No easy bruising. Neurological: No headaches. No tremors. No numbness/tingling. Psychiatric: + anxiety. No depression. Endocrine: No excessive thirst. Not too hot or too cold. Not tired or fatigued. Hematological/lympha tic: No swollen glands or blood clotting problems. No bruising. Active Problems Problems Abnormal mammogram of right breast (793.80) (R92.8) Past Medical History Problems History of endometriosis (V13.29) (Z87.42) Surgical History Problems History of Hysterectomy total Social History Problems Non-smoker (V49.89) (Z78.9) Allergies Medication No Known Drug Allergies Recorded By: Steve Simons; 02/04/2021 11:41:37 AM Vitals L-Dex Vitals Recorded: 09Sep2021 12:19PM Heart Rate96 [id number] Physical Exam General: Alert and oriented x 3. Mood and affect are appropriate. HEENT: EOMI, PERRLA. Neck: supple, no masses, no cervical adenopathy. Cardiovascular: no lower extremity edema. Pulmonary: breathing non labored on room air. GI: Abdomen soft, no masses. No hepatomegaly or splenomegaly. Lymph nodes: No supraclavicular or axillary adenopathy bilaterally. Musculoskeletal: Full range of motion in the upper extremities bilaterally. Neuro: denies dizziness, tremors Breasts: The breasts were examined in both the seated and supine positions. RIGHT: The nipple is everted without nipple discharge. There are no skin changes, skin thickening, or dimpling. There are no masses palpated in the RIGHT breast. LEFT: The nipple is everted without nipple discharge. There are no skin changes, skin thickening, or dimpling. There are no masses palpated in the LEFT breast. Results/Data All reports and images were personally reviewed. Signatures Electronically signed by : Tatiana Silverio DO; Sep 10 2021 11:04AM EST (Author) Normal [facility] MAMM DIAG UNI TOMOon 31-2 022 MAMM DIAG UNI ABBY DIAGNOSTIC RIGHT DIGITAL MAMMOGRAM WITH TOMOSYNTHESIS. TARGETED RIGHT BREAST ULTRASOUND. Clinical History : Short-term follow-up of the right breast. Comparison Studies: 02/10/2021, 01/29/2021, 12/11/2020, 12/05/2019, 10/18/2018, 10/06/2017, 09/29/2016, 09/29/2015 Mammographic findings: Standard 2D and tomosynthesis images were reviewed at 1 mm slice thickness. There are scattered areas of fibroglandular density. There are stable circumscribed focal asymmetries in the upper outer quadrant at anterior depth and upper outer quadrant at mid depth. Additional stable focal asymmetry in the medial aspect at mid depth on the CC view is also noted. There are stable scattered benign-appearing calcific patient. The remainder of the right breast is unremarkable. The digital mammogram has been reviewed with the aid of CAD. Sonographic findings: At 9:00, 3 cm from the nipple, there is a stable superficial focal parallel oriented circumscribed hypoechoic area measuring 8 x 7 x 9 mm. There is no internal vascularity or posterior shadowing. At 11:00, 5 cm from the nipple, there is another parallel oriented circumscribed hypoechoic area measuring 7 x 4 x 5 mm. There is no internal vascularity or posterior shadowing. Both findings correlate with the mammographically stable focal asymmetries in the lateral aspect. Incidentally noted at 10:00, 4 cm from the nipple is an 8 mm coarse dystrophic calcification, correlating with the mammogram. There are no suspicious sonographic abnormalities. IMPRESSION AND RECOMMENDATION: Right breast stable probably benign mammographic and sonographic findings as described above, likely representing stable small areas of focal fibroglandular and/or fibrocystic tissue. Recommend a final six month follow-up right diagnostic mammogram and targeted ultrasound to ensure stability. This should be performed to coincide with the annual bilateral mammogram. BI-RADS Category 3: Probably benign Electronically signed by: Marcello Herrmann MD 09/09/2021 11:17 AM CDT Technologist: MS Dictated By: MARCELLO HERRMANN MD Signed By: MARCELLO HERRMANN MD Signed Out: 09/09/21 12:17:43 Normal [facility] US BREAST RIGHT LIMITEDon US BREAST RIGHT LIMITED DIAGNOSTIC RIGHT DIGITAL MAMMOGRAM WITH TOMOSYNTHESIS. TARGETED RIGHT BREAST ULTRASOUND. Clinical History : Short-term follow-up of the right breast. Comparison Studies: 02/10/2021, 01/29/2021, 12/11/2020, 12/05/2019, 10/18/2018, 10/06/2017, 09/29/2016, 09/29/2015 Mammographic findings: Standard 2D and tomosynthesis images were reviewed at 1 mm slice thickness. There are scattered areas of fibroglandular density. There are stable circumscribed focal asymmetries in the upper outer quadrant at anterior depth and upper outer quadrant at mid depth. Additional stable focal asymmetry in the medial aspect at mid depth on the CC view is also noted. There are stable scattered benign-appearing calcific patient. The remainder of the right breast is unremarkable. The digital mammogram has been reviewed with the aid of CAD. Sonographic findings: At 9:00, 3 cm from the nipple, there is a stable superficial focal parallel oriented circumscribed hypoechoic area measuring 8 x 7 x 9 mm. There is no internal vascularity or posterior shadowing. At 11:00, 5 cm from the nipple, there is another parallel oriented circumscribed hypoechoic area measuring 7 x 4 x 5 mm. There is no internal vascularity or posterior shadowing. Both findings correlate with the mammographically stable focal asymmetries in the lateral aspect. Incidentally noted at 10:00, 4 cm from the nipple is an 8 mm coarse dystrophic calcification, correlating with the mammogram. There are no suspicious sonographic abnormalities. IMPRESSION AND RECOMMENDATION: Right breast stable probably benign mammographic and sonographic findings as described above, likely representing stable small areas of focal fibroglandular and/or fibrocystic tissue. Recommend a final six month follow-up right diagnostic mammogram and targeted ultrasound to ensure stability. This should be performed to coincide with the annual bilateral mammogram. BI-RADS Category 3: Probably benign Electronically signed by: Marcello Herrmann MD 09/09/2021 11:17 AM CDT Technologist: MANAS Dictated By: MARCELLO HERRMANN MD Signed By: MARCELLO HERRMANN MD Signed Out: 09/09/21 12:17:43 Normal [facility] MAMM DIG DIAG UNIon 02-12-20 21 MAMM DIG DIAG UNI DIAGNOSTIC RIGHT DIGITAL MAMMOGRAM WITH TOMOSYNTHESIS. TARGETED RIGHT BREAST ULTRASOUND. Clinical History : Patient presented for right breast ultrasound guided core biopsy. However, on further review of the recent imaging, it was determined that core biopsy is not necessitated. Additional imaging was performed today. Comparison Studies: 01/29/2021, 12/11/2020, 12/05/2019, 10/18/2018, 10/06/2017, 09/24/2014. Mammographic findings: Standard 2D and tomosynthesis images were reviewed at 1 mm slice thickness. There are scattered areas of fibroglandular density. The previously described focal asymmetry on screening mammogram in the lateral aspect at anterior depth, which also localizes superiorly, resolves into fibroglandular and fatty tissue on today's additional views. Today's images demonstrate a stable focal asymmetry in the upper-outer quadrant at anterior depth, which effaces on spot compression views and furthermore has been present dating back to 2014. A stable coarse benign dystrophic calcification in the upper-outer quadrant at anterior to mid depth is stable dating back to 2014. No persistent suspicious underlying masses, architectural distortion, or suspicious calcifications are seen. The digital mammogram has been reviewed with the aid of CAD. Sonographic findings: Targeted ultrasound follow-up of the previously described lesion at 10:00, 6 cm from the nipple is unremarkable today. There is a subtle parallel oriented area with hypoechoic foci intermixed with hyperechoic background tissue. This is benign-appearing, and likely represents an area of focal fibrocystic change. There is no suspicious solid or cystic mass or other abnormal finding. IMPRESSION AND RECOMMENDATION: Right breast probably benign mammographic and sonographic findings, likely representing stable small areas of fibroglandular and fibrocystic tissue as described above. Recommend six month follow-up right diagnostic mammogram with tomosynthesis and targeted ultrasound to ensure stability. Findings and recommendations were discussed with the patient at the time of her exam by Dr. Herrmann. BI-RADS Category 3: Probably benign Electronically signed by: Marcello Herrmann MD 02/10/2021 9:38 AM CDT Technologist: JULIO Dictated By: MARCELLO HERRMANN MD Signed By: MARCELLO HERRMANN MD Signed Out: 02/10/21 10:38:05 Normal [facility] US BREAST RIGHT LIMITEDon US BREAST RIGHT LIMITED DIAGNOSTIC RIGHT DIGITAL MAMMOGRAM WITH TOMOSYNTHESIS. TARGETED RIGHT BREAST ULTRASOUND. Clinical History : Patient presented for right breast ultrasound guided core biopsy. However, on further review of the recent imaging, it was determined that core biopsy is not necessitated. Additional imaging was performed today. Comparison Studies: 01/29/2021, 12/11/2020, 12/05/2019, 10/18/2018, 10/06/2017, 09/24/2014. Mammographic findings: Standard 2D and tomosynthesis images were reviewed at 1 mm slice thickness. There are scattered areas of fibroglandular density. The previously described focal asymmetry on screening mammogram in the lateral aspect at anterior depth, which also localizes superiorly, resolves into fibroglandular and fatty tissue on today's additional views. Today's images demonstrate a stable focal asymmetry in the upper-outer quadrant at anterior depth, which effaces on spot compression views and furthermore has been present dating back to 2014. A stable coarse benign dystrophic calcification in the upper-outer quadrant at anterior to mid depth is stable dating back to 2014. No persistent suspicious underlying masses, architectural distortion, or suspicious calcifications are seen. The digital mammogram has been reviewed with the aid of CAD. Sonographic findings: Targeted ultrasound follow-up of the previously described lesion at 10:00, 6 cm from the nipple is unremarkable today. There is a subtle parallel oriented area with hypoechoic foci intermixed with hyperechoic background tissue. This is benign-appearing, and likely represents an area of focal fibrocystic change. There is no suspicious solid or cystic mass or other abnormal finding. IMPRESSION AND RECOMMENDATION: Right breast probably benign mammographic and sonographic findings, likely representing stable small areas of fibroglandular and fibrocystic tissue as described above. Recommend six month follow-up right diagnostic mammogram with tomosynthesis and targeted ultrasound to ensure stability. Findings and recommendations were discussed with the patient at the time of her exam by Dr. Herrmann. BI-RADS Category 3: Probably benign Electronically signed by: Marcello Herrmann MD 02/10/2021 10:05 AM CDT Technologist: JUDSON Dictated By: MARCELLO HERRMANN MD Signed By: MARCELLO HERRMANN MD Signed Out: 02/10/21 11:05:57 [facility] Initial Visit (Breast Surger y)on 02-04-2021 Initial Visit (Breast Surgery) Diagnoses/Problems Assessed Abnormal mammogram of right breast (793.80) (R92.8) Patient Discussion/Summary We discussed the imaging results and the rationale for biopsy. We discussed the biopsy procedure and potential outcomes includin. Benign 2. High-risk benign necessitating excision 3. The possibility of malignancy. She will be notified of the biopsy results via phone once available. A follow-up appointment was also made for 1 week after biopsy to further discuss biopsy results and next steps of care. All questions were answered the the patient's satisfaction. She was encouraged to return sooner with any questions or concerns. Provider Impressions 1. right breast mass 10:00 6cmFN measuring 1cm -U/S biopsy recommended Chief Complaint abnormal mammogram right breast History of Present IllnessLAURIE HERNÁNDEZ is a 75 year female who presents today at the request of Gurinder Vallejo MD with abnormal mammogram right breast. Called back after screening mammogram 12/11/2020 for a right breast focal asymmetry. 01/29/2021 diagnostic mammogram and U/S: 10:00 6cmFN there is a 1cm complex rounded mass seen. Axilla scanned and negative. U/S biopsy of the right breast mass recommended. She denies any additional breast masses, skin thickening, erythema, nipple retraction or nipple discharge. Prior breast history includes: - breast biopsy: no - breast surgery:no - breast cancer:no Menarche: 12 AFLB:29 Menopause: 48 HRT: 8 years Family history: negative for breast or ovarian cancer Review of Systems Constitutional symptoms: Denies generalized fatigue. Denies weight change, fevers/chills, difficulty sleeping Eyes: Denies double vision, glaucoma, +cataracts. Ear/nose/throat/mout h: Denies hearing changes, +sore throat, +sinus problems. Cardiovascular: No chest pain. Denies irregular heartbeat. Denies ankle swelling. Respiratory: No wheezing, cough, or shortness of breath. Gastrointestinal: No abdominal pain, No nausea/vomiting. No indigestion/heartbur n. No change in bowel habits. No constipation or diarrhea. Genitourinary: No urinary incontinence. No urinary frequency. No painful urination. Musculoskeletal: No bone pain, no muscle pain, no joint pain. Integumentary: No rash. No masses. No changes in moles. No easy bruising. Neurological: No headaches. No tremors. No numbness/tingling. Psychiatric: + anxiety. No depression. Endocrine: No excessive thirst. Not too hot or too cold. Not tired or fatigued. Hematological/lympha tic: No swollen glands or blood clotting problems. No bruising. Physical Exam General: Alert and oriented x 3. Mood and affect are appropriate. HEENT: EOMI, PERRLA. Neck: supple, no masses, no cervical adenopathy. Cardiovascular: no lower extremity edema. Pulmonary: breathing non labored on room air. GI: Abdomen soft, no masses. No hepatomegaly or splenomegaly. Lymph nodes: No supraclavicular or axillary adenopathy bilaterally. Musculoskeletal: Full range of motion in the upper extremities bilaterally. Neuro: denies dizziness, tremors Breasts: The breasts were examined in both the seated and supine positions. RIGHT: The nipple is everted without nipple discharge. There are no skin changes, skin thickening, or dimpling. There are no masses palpated in the RIGHT breast. LEFT: The nipple is everted without nipple discharge. There are no skin changes, skin thickening, or dimpling. There are no masses palpated in the LEFT breast. Results/Data All reports and images were personally reviewed. Signatures Electronically signed by : Tatiana Silverio DO; Feb 04 2021 11:20AM EST (Author) Normal [facility] MAMM DIAG UNI TOMOon 021 MAMM DIAG UNI ABBY DIAGNOSTIC UNILATERAL RIGHT BREAST DIGITAL MAMMOGRAM WITH TOMOSYNTHESIS. UNILATERAL RIGHT BREAST AND RIGHT AXILLA ULTRASOUND, LIMITED. Clinical History: New asymmetry within the central right breast at anterior depth on the CC view, slightly superior on the MLO view on the study of 12/11/2020. Comparison Studies: 12/11/2020. Mammographic findings: Standard 2D and tomosynthesis images were reviewed at 1 mm slice thickness. There are scattered areas of fibroglandular density. The focal asymmetry in the upper outer quadrant of the right breast at anterior to mid depth appears to efface on spot compression views as fibroglandular and fatty tissue. It is not identified on a true lateral view. The digital mammogram has been reviewed with the aid of CAD. Targeted ultrasound of the upper outer quadrant of the right breast shows a 1.0 x 1.0 x 1.0 cm poorly circumscribed, rounded complex mass in the 10:00 position, 6 cm from the nipple. There is no internal vascularity or associated acoustic shadowing. Ultrasound of the right axilla shows two normal-appearing lymph nodes with normal fatty gaston and normal thin cortex. No abnormal lymph nodes were seen. IMPRESSION AND RECOMMENDATION: No apparent mammographic evidence of malignancy. 1.0 cm complex mass in the 10:00 position of the right breast, 6 cm from the nipple on ultrasonography. Ultrasound-guided core biopsy and referral to a breast surgeon is recommended. Category 4 : Suspicious Abnormality - Biopsy Should Be Considered Electronically signed by: Shailesh Pak MD 01/29/2021 9:13 AM CDT Technologist: LAI Dictated By: SHAILESH PAK MD Signed By: SHAILESH PAK MD Signed Out: 01/29/21 10:27:09 Normal [facility] US BREAST RIGHT LIMITEDon US BREAST RIGHT LIMITED DIAGNOSTIC UNILATERAL RIGHT BREAST DIGITAL MAMMOGRAM WITH TOMOSYNTHESIS. UNILATERAL RIGHT BREAST AND RIGHT AXILLA ULTRASOUND, LIMITED. Clinical History: New asymmetry within the central right breast at anterior depth on the CC view, slightly superior on the MLO view on the study of 12/11/2020. Comparison Studies: 12/11/2020. Mammographic findings: Standard 2D and tomosynthesis images were reviewed at 1 mm slice thickness. There are scattered areas of fibroglandular density. The focal asymmetry in the upper outer quadrant of the right breast at anterior to mid depth appears to efface on spot compression views as fibroglandular and fatty tissue. It is not identified on a true lateral view. The digital mammogram has been reviewed with the aid of CAD. Targeted ultrasound of the upper outer quadrant of the right breast shows a 1.0 x 1.0 x 1.0 cm poorly circumscribed, rounded complex mass in the 10:00 position, 6 cm from the nipple. There is no internal vascularity or associated acoustic shadowing. Ultrasound of the right axilla shows two normal-appearing lymph nodes with normal fatty gaston and normal thin cortex. No abnormal lymph nodes were seen. IMPRESSION AND RECOMMENDATION: No apparent mammographic evidence of malignancy. 1.0 cm complex mass in the 10:00 position of the right breast, 6 cm from the nipple on ultrasonography. Ultrasound-guided core biopsy and referral to a breast surgeon is recommended. Category 4 : Suspicious Abnormality - Biopsy Should Be Considered Electronically signed by: Shailesh Pak MD 01/29/2021 9:13 AM CDT Technologist: BETO Dictated By: SHAILESH PAK MD Signed By: SHAILESH PAK MD Signed Out: 01/29/21 10:13:12 Normal [facility] MAMM DIGITAL SCRN BILATERALo n 12-14-2020 MAMM DIGITAL SCRN BILATERAL SCREENING BILATERAL DIGITAL MAMMOGRAM Clinical Data: Screening. Comparison: 12/05/2019, 10/18/2018, 10/06/2017 Mammographic findings: There are scattered areas of fibroglandular density. There is a right breast new asymmetry in the central aspect at anterior depth on the CC view, possibly localizing slightly superiorly on MLO view. No suspicious masses or suspicious calcifications are identified in the left breast. There are scattered bilateral benign-appearing calcifications. This examination was reviewed with the aid of CAD (computer assisted detection). IMPRESSION AND RECOMMENDATION: 1. Right breast focal asymmetry. Additional spot compression and true lateral views with tomosynthesis and possible ultrasound are recommended. 2. No mammographic evidence of malignancy in the left breast. Category 0 : Need Additional Imaging Evaluation and/or Prior Mammograms For Comparison Electronically signed by: Marcello Herrmann MD 12/14/2020 9:17 AM CDT Technologist: AVANI Dictated By: MARCELLO HERRMANN MD Signed By: MARCELOL HERRMANN MD Signed Out: 12/14/20 10:17:03 Normal [facility] Culture, urine Bacteria identified Cx Nom (U) Mixed Gram Pos & Gram Neg Org [facility] Work Phone: Vital Signs Date Time Vital Sign Value Performing Clinician Nate velazquez 10-09-2023 14:34-0400 Body temperature 98 [degF] [facility] 10-09-2023 14:34-0400 Diastolic blood pressure 71 mm[Hg] [facility] 10-09-2023 14:34-0400 Heart rate 62 /min [facility] 10-09-2023 14:34-0400 Respiratory rate 16 /min [facility] 10-09-2023 14:34-0400 SaO2% (BldA) [Mass fraction] 90 % [facility] 10-09-2023 14:34-0400 Systolic blood pressure 112 mm[Hg] [facility] 10-09-2023 11:00-0400 Body height 157.48 cm [facility] 06-21-2022 16:16-0500 Diastolic blood pressure 69 mm[Hg] [facility] 06-21-2022 16:16-0500 Systolic blood pressure 150 mm[Hg] [facility] 06-21-2022 14:47-0500 SaO2% (BldA) [Mass fraction] 95 % [facility] 06-21-2022 14:36-0500 Heart rate 70 /min [facility] 06-21-2022 13:22-0500 Body height 154.94 cm [facility] 06-21-2022 13:22-0500 Body mass index (BMI) [Ratio] 35.6 kg/m2 [facility] 06-21-2022 13:22-0500 Body temperature 98 [degF] [facility] 06-21-2022 13:22-0500 Body weight 85.72 kg [facility] 06-21-2022 13:22-0500 Respiratory rate 16 /min [facility] 09-09-2021 12:19-0400 Diastolic blood pressure 80 mm[Hg] Gurinder Vallejo Work Phone: [facility] Work Phone: 09-09-2021 12:19-0400 Heart rate 96 /min Gurinder Vallejo Work Phone: -[facility] Work Phone: 09-09-2021 12:19-0400 Respiratory rate 20 /min Gurinder Vallejo Work Phone: [facility] Work Phone: 09-09-2021 12:19-0400 Systolic blood pressure 162 mm[Hg] Luis Fernandokatty Vallejo Work Phone: [facility] Work Phone: Encounters Encounter Date Encounter Type Care Provider Facility Start: 05-28-2024 End: 05-28-2024 ambulatory [facility] Facility:[facility] Start: 01-04-2024 End: 01-04-2024 ambulatory [facility] Facility:[facility] Start: 10-12-2023 End: 10-12-2023 ambulatory [facility] Work Phone: Start: 10-12-2023 End: 10-12-2023 Patient encounter procedure [facility] Work Phone: Start: 10-12-2023 End: 10-12-2023 ambulatory [facility] Facility:[facility] Start: 10-09-2023 End: 10-09-2023 Emergency department patient visit [facility]-Emergency Department Work Phone: Start: 05-12-2023 End: 05-12-2023 ambulatory [facility] Work Phone: Start: 05-12-2023 End: 05-12-2023 Patient encounter procedure [facility] Work Phone: Start: 07-26-2022 End: 07-26-2022 ambulatory [facility] Work Phone: Start: 07-26-2022 End: 07-26-2022 Discharged Recurring [facility]-Physical Therapy Start: 06-21-2022 End: 06-21-2022 Emergency department patient visit [facility]-Emergency Department Start: 05-02-2022 End: 05-02-2022 ambulatory [facility] Work Phone: Start: 05-02-2022 End: 05-02-2022 Patient encounter procedure [facility] Start: 04-14-2022 End: 04-14-2022 ambulatory [facility] Work Phone: Start: 04-14-2022 End: 04-14-2022 Patient encounter procedure [facility] Start: 03-16-2022 End: 03-16-2022 ambulatory [facility] Work Phone: Start: 03-16-2022 End: 03-16-2022 Patient encounter procedure [facility] Start: 03-10-2022 End: 03-11-2022 ambulatory ss - [id number] TATIANA SILVERIO DO Facility:[id number] Start: 10-10-2021 End: 10-10-2021 ambulatory ss - 4084 TATIANA SILVERIO DO Facility:[id number] Start: 09-09-2021 Office outpatient visit 10 minutes Gurinder Vallejo Work Phone: [facility] Work Phone: Start: 09-09-2021 End: 09-10-2021 ambulatory ss - 4084 TATIANA SILVERIO DO Facility:[id number] Start: 07-07-2021 AUDIT Gurinder Vallejo Work Phone: [facility] Work Phone: Start: 03-21-2021 End: 03-21-2021 ambulatory ss - 408Chuck SILVERIO DO Facility:[id number] Procedures Date Procedure Procedure Detail Performing Clinician Start: 10-09-2023 Plain chest X-ray Start: 10-09-2023 CT of head without contrast Start: 05-12-2023 MRI of brain without contrast Start: 06-21-2022 Plain chest X-ray Start: 04-14-2022 CT of abdomen withou t contrast Start: 10-05-2022 Diagnostic radiograp hy of abdomen Total hysterectomy Joefranklin Vallejo Work Phone: Urine culture Plan of Treatment Date Care Activity Detail Author Start: 10-09-2023 [facility] Start: 06-21-2022 [facility] Start: 09-09-2021 MAMMOGVST, Provider: Tatiana Silverio, Status: Pen, Time: 12:00 PM MAMMOGVST, Provider: Tatiana Silverio, Status: Pen, Time: 12:00 PM [facility] Work Phone: Patient Education [facility] Work Phone: Patient referral [facility] Work Phone: Payers Date Payer Category Payer Unknown [id number] 2021 Self-pay 2008 Private Health Insurance 2008 Unknown [id number] 1945 Unknown [id number] [id number] [id number] 1945 Unknown [id number] 2.16.8 [id number] 1945 Unknown [id number] 2.16.8 [id number] 1945 Unknown [id number] 2.16.8 [id number] Unknown Unknown [id number] 2.16.8 [id number] Unknown [id number] 2.16.8 [id number] Unknown [id number] 2.16.8 [id number] Unknown [id number] 2.16.8 [id number] Social History Date Type Detail Facility Non-smoker [facility] Work Phone: Start: 1945 Sex Assigned At Female [facility] Start: 06-21-2022 End: 10-09-2023 Tobacco smoking status NHIS Unknown if ever smoked [facility] Mental Status Date Assessment Result Facility 10-09-2023 Cognitive function Level Of Cons ciousness Awake;Alert;Appropriate;Follow s Commands [facility] Work Phone: 06-21-2022 Cognitive function Voice/Name [facility] Work Phone: Discharge summary 08-18-2022 Note Date & Type Note Facility 08-18-2022 Discharge summary Note Date/Time August 18, 2022 3:51 pm [facility] Physical Therapy [facility] [address] [place] [address] / REHABILITATION SERVICES DISCHARGE SUMMARY MR#: [id number] Acct: [id number] Name: LAURIE HERNÁNDEZ Rep #: [id number] 2 : 1945 76 From: Rojsa Root DPT, OCS, CSCS Referring Dr.: Dr. Skyler Kothari MD Statu s: REG RCR Insurance: [facility] ADV LIFE1 SELF PAY INSURANCE LAURIE HERNÁNDEZ was seen in my office for initial evaluation on 06/30/22. The following Plan of Care was established for this patient: Initial Frequency: 1-2x /Week Initial Duration: 2-4 Weeks Patient/Client Instruction: Educate patient on: Condition, Plan of Care For the Purpose of:: To increase tolerance to activity/condition/position, To improve gait and locomotor functions, To improve balance Therapeutic Exercise to Include: Balance training For the Purpose of:: To increase tolerance to activity/condition/position, To improve gait and locomotor functions, To improve balance, To improve safety withgait This patient was last seen in our office 07/26/22. Pertinent comments regardingtheir Physical therapy will appear below: Pt seen four visits of positional treatments and balance. She was noncompliant with exercises and having other medical difficulties with her gall bladder. Sheis to f/u on 08/19 but cancelled and stated she wished to be discharged as she isdoing well. At this point I will be discontinuing this patient from physical therapy. I would be happy to see this patient again in the future if found appropriate by the physician. Thank you! Rojas Root, DPT, OCS, CSCS Balance/Gait/Functional tests - Balance/Special Test Scores Functional Gait Assessment Score: 28 % Disability: 6.6700 CATSIB Score (Max score 120 seconds): 75 Dizziness Score: 46 <Electronically signed by Rojas VENTURAT, OCS, CSCS> 08/18/22 1551 CC: Dr. Skyler Kothari MD ~ EBG Signed [facility] Work Phone: History of Present illness Narrative 12-11-2020 Note Date & Type Note Facility 12-11-2020 History of Present illness Narrative LAURIE HERNÁNDEZ is a 75 year female who presents today at the request of Genevieve LOBATO, Gurinder Wilkerson with abnormal mammogram right breast.Called back after screening mammogram 12/11/2020 for a right breast focal asymmetry.01/29/2021 diagnostic mammogram and U/S: 10:00 6cmFN there is a 1cm complex rounded mass seen. Axilla scanned and negative. U/S biopsy of the right breast mass recommended.patient returned for biopsy on and findings were felt to be probably benign fibroglandular tissue. 6 month follow up was recommended.09/09/2021 follow up right mammogram and U/S: stable. Final 6 month follow up recommended.She denies any additional breast masses, skin thickening, erythema, nipple retraction or nipple discharge.Prior breast history includes:- breast biopsy: no- breast surgery:no- breast cancer:noMenarche: 12AFLB:28Menopause: 48HRT: 8 yearsFamily history: negative for breast or ovarian cancer [facility] Work Phone: Evaluation note Note Date & Type Note Facility Evaluation note No assessment information availa ble [facility] Work Phone: Hospital Discharge instructions Note Date & Type Note Facility Hospital Discharge instructions Additional Instructions Thank you for trusting us with your care today! Please take Tylenol (2 pills, 650 mg), ibuprofen (2 pills, 400 mg) every 6 hours as needed for pain and fever control. Please already prescribed Valium and meclizine as needed for dizziness. Please return to the emergency department if your symptoms change or worsen. Please follow with your primary care physician for further outpatient evaluation and management. [facility] Work Phone: Chief Complaint follow up abnormal mammogram Summary Purpose Family History No Family History Records FoundNo Family History Records FoundNo Family History Records FoundNo Family History Records Found Advance Directives No Advanced Directives Records Found Advance Directive Response Recorded Date/ Time Living Will No June 21 2:27pm Power of Wildlife Protector No June 21, 2022 2:27pm Advance Directive Response Recorded Date/ Time Living Will Yes October 09, 2023 11:16am Power of Wildlife Protector Yes October 08 11:16am Name of Medical Power of Wildlife Protector son October 09, 2023 11:16am Chief Complaint and Reason for Visit Chief Complaint ABD INC CHEST XRAY Chief Complaint ABD INC CHEST XRAY ABD PAIN Chief Complaint DIZZY VERTIGO/RX W/ PT Chief Complaint RESTING TREMORS Chief Complaint DIZZINESS Chief Complaint DIZZINESS EORDER Additional Source Comments INFORMATION SOURCE (unrecogn ized section and content) DATE CREATED AUTHOR 09/11/2021 [facility] DATE CREATED AUTHOR AUTHOR'S ORGANIZ ATION 09/12/2021 [facility] DATE CREATED AUTHOR AUTHOR'S ORGANIZ ATION 03/14/2022 [facility] DATE CREATED AUTHOR AUTHOR'S ORGANIZ ATION 05/31/2024 [facility] Goals (unrecognized section and content) Goals may be documented in a n alternate sectionGoals may be documented in an alternate sectionGoals may be documented in an alternate sectionGoals may be documented in an alternate sectionGoals may be documented in an alternate sectionGoals may be documented in an alternate sectionGoals may be documented in an alternate section Care Teams (unrecognized sec tion and content) Team Status: Active Member Role Status Dates Dr. Skyler Kothari MD Primary Care Provider Activ e Team Status: Inactive Member Role Status Dates Dr. Skyler Kothari MD Primary Care Provider Activ e Dr. Juan José Jennings MD Attending Provider, Referring Provider Active Team Status: Inactive Member Role Status Dates Dr. Skyler Kothari MD Primary Care Provider Activ e Dr. Roney Luna DO Attending Provider, Emergency Provider Active Team Status: Inactive Member Role Status Dates Dr. Skyler Kothari MD Primary Care Provider, Attending Provider, Referring Provider Active Team Status: Active Member Role Status Dates Dr. Gurinder Kothari MD Primary Care Provider Acti ve Team Status: Inactive Member Role Status Dates Dr. Gurinder Kothari MD Primary Care Provider Acti ve Dr. Zhang Bridges DO Emergency Provider Active Team Status: Inactive Member Role Status Dates Dr. Gurinder Kothari MD Primary Care Provider Acti ve Dr. Zhang Bridges DO Attending Provider, Emergency P rovider Active Team Status: Inactive Member Role Status Dates Dr. Gurinder Kothari MD Primary Care Provider, Attending Provider, Referring Provider Active FOR RECORDS PERTAINING TO PATIENTS WHO ARE OR HAVE BEEN ENROLLED IN A CHEMICAL DEPENDENCY/SUBSTANCEABUSE PROGRAM, SOME INFORMATION MAY BE OMITTED. This clinical summary was aggregated from multiple sources. Caution should be exercised in using it in the provision of clinical care. This summary normalizes information from multiple sources, and as a consequence, information in this document may materially change the coding, format and clinical context of patient data. In addition, data may be omitted in some cases. CLINICAL DECISIONS SHOULD BE BASED ON THE PRIMARY CLINICAL RECORDS. [employer] provides no warranty or guarantee of the accuracy or completeness of information in this document.
[2025-01-07 10:22] LABS: PTHIN 67 pg/mL (11-61)
[2025-01-07 10:25] LABS: Anion Gap 12 (5-15); BUN 13 mg/dL (4-19); BUN/Creat Ratio 16.7 RATIO (10-20); Calcium,Total 9.3 mg/dL (7.6-11.0); Carbon Dioxide 27.4 mmol/L (21.0-32.0); Chloride 100 mmol/L (98-108); Cholesterol 130 mg/dL (<=200); Glucose 105 mg/dL (70-99); Low Density Lipoprotein Calc. 51 mg/dL; Potassium 3.6 mmol/L (3.3-5.1); Triglycerides 127 mg/dL; Very Low Density Lipoprotein 25 mg/dL (5-40); cholesterol:hdl ratio screen 2.41
== END | disposition home or self-care (01) ==
LOC: MTLAB 07:14
PROVIDERS: PCP Family Medicine; Referring Provider Family Medicine; Visit Provider Family Medicine
DX: E78.5 Hyperlipidemia, unspecified (principal); M81.0 Age-related osteoporosis without current pathological fracture
CPT/HCPCS: 36415; 80048; 80061; 83970